=== PATIENT | female | born 1930 | race Caucasian/White ===

== ENCOUNTER 2017-05-26 23:56 | Inpatient (IN) | payer OTHER, MEDICARE ==
--- NOTE | 2017-05-27 00:11 | PDOC ---
History of Present Illness - General Chief Complaint: Pain, Acute Stated Complaint: ABDOMINAL PAIN AFTER EATING LOBSTER Time Seen by Provider: 05/27/17 00:04 - History of Present Illness Initial Comments: 05/27/17 00:49 This 87-year-old woman with a history of hypertension, GERD, diverticular disease, colon carcinoma (2006) presents with epigastric pain and mild nausea for the last 3-4 hours. Patient states that she ate lobster (with melted butter ) at approximately 6 PM. At approximately 9 PM, she had onset of epigastric pain which has been steady. This pain is not anything like her diverticular or GERD pain. Patient had a normal bowel movement a few hours prior to presentation. She denies fever/chills. No history of chest pain, shortness of breath, cough. She has not had any recent acute illness. Patient has a history of appendectomy and hysterectomy. Past History - Past Medical History Allergies/Adverse Reactions: Allergies Allergy/AdvReac Type Severity Reaction Status Date / Time No Known Drug Allergies Allergy Verified 08/23/16 16:54 Anemia: No Asthma: No Cancer: Yes (COLON 2007,HAD RESECTION AND CHEMO) Cardiac Disorders: No CVA: No COPD: No CHF: No Dementia: No Diabetes: No GI Disorders: Yes (GERD COLON CANCER) Disorders: No HTN: Yes Hypercholesterolemia: No Liver Disease: No Seizures: No Thyroid Disease: No - Surgical History Abdominal Surgery: Yes (COLON RESECTION 2003) Appendectomy: Yes () Cardiac Surgery: No Cholecystectomy: No Lung Surgery: No Neurologic Surgery: No Orthopedic Surgery: No - Psycho/Social/Smoking Cessation Hx Anxiety: No Suicidal Ideation: No Smoking History: Never smoked Have you smoked in the past 12 months: No Hx Alcohol Use: No Drug/Substance Use Hx: No Substance Use Type: None Hx Substance Use Treatment: No Review of Systems - Review of Systems Able to Perform ROS?: Yes Comments:: 12 point review of systems is negative except for what is noted in the history of present illness *Physical Exam - Physical Exam Comments: GENERAL: Elderly female, alert and oriented 3, in moderate distress secondary to epigastric pain HEAD: Normal with no signs of trauma. EYES: PERRLA, EOMI, sclera anicteric, conjunctiva clear. ENT: Ears normal, nares patent, oropharynx clear without exudates. Moist mucous membranes. NECK: Normal range of motion, supple without lymphadenopathy, JVD, or masses. LUNGS: Breath sounds equal, clear to auscultation bilaterally. No wheezes, and no crackles. HEART:Regular rate and rhythm, normal S1 and S2 without murmur, rub or gallop. ABDOMEN:.normal bowel sounds no distention; mild epigastric tenderness without peritoneal signs Positive Graham sign, no masses or organomegaly present. EXTREMITIES: Normal range of motion, no edema. No clubbing or cyanosis. No erythema, or tenderness. NEUROLOGICAL: Cranial nerves II through XII grossly intact. Normal speech. No focal neurologic deficit MUSCULOSKELETAL: Back non-tender to palpation, no CVA tenderness SKIN: Warm, Dry, normal turgor, no rashes or lesions noted. 12-lead electrocardiogram performed and interpreted by me. This shows normal sinus rhythm at 91 bpm. P[place], intervals and wave forms are all normal. Compared to 12-lead EKG performed on 01/22/16, there is no significant change. ED Treatment Course - LABORATORY CBC & Chemistry Diagram: 05/27/17 00:30 05/27/17 00:35 Progress Note - Progress Note Progress Note: Gallbladder ultrasound interpreted by Imaging manager of application development: Gallbladder is distended containing multiple stones. There is mild wall thickening up to 4.4 millimeters with trace pericholecystic fluid. Findings are highly suspicious for acute cholecystitis. CBD not dilated, measuring 7 mm in diameter. No other significant findings. Medical Decision Making - Medical Decision Making 05/27/17 02:00 87-year-old woman presents with several hours of epigastric pain and nausea (no vomiting); onset of pain was a few hours after high-fat meal. No previous history of gallbladder pathology. Ultrasound consistent with multiple gallstones and acute cholecystitis with mild wall thickening and trace pericholecystic fluid. No elevation of white blood cell count on CBC; chemistry profile shows moderate prerenal azotemia with BUN of 25 and creatinine of 0.9. LFTs/lipase normal Patient has had some improvement in her abdominal pain (from "8/10" to "4/10") after Toradol 30 mg IV, her nausea has worsened (Zofran 4 mg IV ordered) Zosyn 3.3 grams IV ordered 05/27/17 02:21 Patient given 0.5mg Dilaudid IV for recurrent pain 05/27/17 02:44 Additional 4 mg of Zofran IV given for persistent nausea. Patient's PMD is Dr. Jeronimo Case discussed with , [facility] hospitalist service. Patient will be admitted with diagnosis of acute cholecystitis to hospitalist service. 05/27/17 03:05 Portable chest x-ray performed: No evidence of acute disease. Patient transported to admission bed in stable condition , comfortable and without new complaints. *DC/Admit/Observation/Transfer Diagnosis at time of Disposition: Acute calculous cholecystitis - Discharge Dispostion Condition at time of disposition: Stable Admit: Yes - Referrals
[2017-05-27] MEDS ORDERED: KETOROLAC TROMETHAMINE 30 MG/1 ML VIAL IVPUSH ONE (00:24)
[2017-05-27] MEDS ORDERED: KETOROLAC TROMETHAMINE 30 MG/1 ML VIAL ONE (00:30)
[2017-05-27 00:39] VITALS: BMI 22.8
[2017-05-27] MEDS ORDERED: HYOSCYAMINE SULFATE 0.125 MG *ODT PO ONE (00:39)
[2017-05-27] MEDS ORDERED: MAG HYDROX/AL HYDROX/SIMETH 355 ML ORAL.SUSP PO ONE (00:39)
[2017-05-27] MEDS ORDERED: HYOSCYAMINE SULFATE 0.125 MG *ODT ONE (00:40)
[2017-05-27] MEDS ORDERED: MAG HYDROX/AL HYDROX/SIMETH 30 ML UNIT-DOSE CUP ONE (00:43)
[2017-05-27 01:09] LABS: BASOPHIL 1.2 % (0-2.0); EOSINOPHIL 2.1 % (0-4.5); MCH 36.8 pg (25.7-33.7); MCHC 34.5 g/dl (32.0-36.0); MEAN CELL VOLUME 106.7 fl (80-96); MEAN PLT VOLUME 10.2 fl (7.5-11.1); NEUTROPHILS 42.2 % (42.8-82.8); RDW 14.9 % (11.6-15.6); WHITE BLOOD COUNT 6.2 K/mm3 (4.0-10.0)
[2017-05-27 01:34] LABS: TROPONIN I < 0.02 ng/ml (0.00-0.05)
[2017-05-27 01:54] LABS: ALBUMIN 4.4 g/dl (3.4-5.0); ALK PHOS 80 U/L (45-117); ANION GAP 10 (8-16); BILIRUBIN,TOTAL 0.6 mg/dL (0.2-1.0); CALCIUM 9.4 mg/dL (8.5-10.1); CO2 26 mmol/L (21-32); CREATININE 0.9 mg/dL (0.55-1.02); GLUCOSE,RANDOM 125 mg/dL (74-106); SGOT/AST 18 U/L (15-37); SGPT/ALT 22 U/L (12-78); TOT PROT 7.7 g/dl (6.4-8.2)
[2017-05-27] MEDS ORDERED: PIPERACILLIN/TAZOB 3.375 GM 3.375 GM in DEXTROSE 5%-WATER - 50 ML IVPB ONE (01:57)
[2017-05-27] MEDS ORDERED: PIPERACILLIN/TAZOBACTAM 3.375 GM VIAL IVPB ONE (01:58)
[2017-05-27 01:59] LABS: ANISOCYTOSIS 2+; PLATELET COMMENT2 NO CLUMPING NOTED; PLATELET COUNT 144 K/MM3 (134-434)
[2017-05-27] MEDS ORDERED: ONDANSETRON 4 MG/2 ML VIAL ONE ×2 (02:00→02:39)
[2017-05-27] MEDS ORDERED: ONDANSETRON 4 MG/2 ML VIAL IVPUSH ONE ×2 (02:00→02:42)
[2017-05-27] MEDS ORDERED: HYDROmorphone HCL CARPU-JECT 1 MG/1 ML DISP.SYRIN ONE (02:11)
[2017-05-27] MEDS ORDERED: HYDROmorphone HCL CARPU-JECT 1 MG/1 ML DISP.SYRIN IVPUSH ONE (02:19)
[2017-05-27] MEDS ORDERED: morphine CARPU-JECT 2 MG/1 ML DISP.SYRIN IVPUSH PRN (02:28)
--- NOTE | 2017-05-27 08:12 | HP ---
CHIEF COMPLAINT: right upper quadrant abdominal pain PCP: Dr Jeronimo HISTORY OF PRESENT ILLNESS: Patient is a 87 y/o female with a past medical history of hypertension, diverticulitis, GERD, and colon carcinoma, s/p colon resection, chemo 2006. Patient reports she ate a lobster dinner last evening and at 2100 yesterday evening developed sharp epigastric pain with nausea. As a result, she sought evaluation in the emergency department. ER course was notable for: (1) abdominal ultrasound: multiple gallstones, finding suspicous for acute choleystitis without biliary duct dilation (2) chest xray no infilitrates or effusions noted (3) wbc 6.2 Recent Travel: none PAST MEDICAL HISTORY: see hpi PAST SURGICAL HISTORY: see hpi Social History: retired, resides at home Smoking: none Alcohol: drinks wine daily Drugs: Family History: non contributory Allergies No Known Drug Allergies Allergy (Verified 08/23/16 16:54) HOME MEDICATIONS: REVIEW OF SYSTEMS CONSTITUTIONAL: Absent: fever, chills, diaphoresis, generalized weakness, malaise, loss of appetite, weight change HEENT: Absent: rhinorrhea, nasal congestion, throat pain, throat swelling, difficulty swallowing, mouth swelling, ear pain, eye pain, visual changes CARDIOVASCULAR: Absent: chest pain, syncope, palpitations, irregular heart rate, lightheadedness , peripheral edema RESPIRATORY: Absent: cough, shortness of breath, dyspnea with exertion, orthopnea, wheezing, stridor, hemoptysis GASTROINTESTINAL: Present: abdominal pain, nausea, Absent: abdominal distension, vomiting, diarrhea, constipation, melena, hematochezia GENITOURINARY: Absent: dysuria, frequency, urgency, hesitancy, hematuria, flank pain, genital pain MUSCULOSKELETAL: Absent: myalgia, arthralgia, joint swelling, back pain, neck pain SKIN: Absent: rash, itching, pallor HEMATOLOGIC/IMMUNOLOGIC: Absent: easy bleeding, easy bruising, lymphadenopathy, frequent infections ENDOCRINE: Absent: unexplained weight gain, unexplained weight loss, heat intolerance, cold intolerance NEUROLOGIC: Absent: headache, focal weakness or paresthesias, dizziness, unsteady gait, seizure, mental status changes, bladder or bowel incontinence PSYCHIATRIC: Absent: anxiety, depression, suicidal or homicidal ideation, hallucinations. PHYSICAL EXAMINATION Vital Signs - 24 hr 05/27/17 05/27/17 02:57 06:25 Temperature 97.9 F Pulse Rate 80 Pulse Rate [ 84 Left] Respiratory 16 18 Rate Blood Pressure 112/71 Blood Pressure 135/76 [Left] O2 Sat by Pulse 98 Oximetry (%) GENERAL: thin, Awake, alert, and fully oriented, anxious. HEAD: Normal with no signs of trauma. EYES: Pupils equal, round and reactive to light, extraocular movements intact, sclera anicteric, conjunctiva clear. No lid lag. EARS, NOSE, THROAT: Ears normal, nares patent, oropharynx clear without exudates. Moist mucous membranes. NECK: Normal range of motion, supple without lymphadenopathy, JVD, or masses. LUNGS: Breath sounds equal, clear to auscultation bilaterally. No wheezes, and no crackles. No accessory muscle use. HEART: Regular rate and rhythm, normal S1 and S2 without murmur, rub or gallop. ABDOMEN: Soft, +murphys sign, well healed surgical site, not distended, normoactive bowel sounds, no guarding, no masses. No hepatomegaly or splenomegaly. MUSCULOSKELETAL: Normal range of motion at all joints. No bony deformities or tenderness. No CVA tenderness. UPPER EXTREMITIES: 2+ pulses, warm, well-perfused. No cyanosis. No clubbing. No peripheral edema. LOWER EXTREMITIES: 2+ pulses, warm, well-perfused. No calf tenderness. No peripheral edema. NEUROLOGICAL: Cranial nerves II-XII intact. Normal speech. Normal gait. PSYCHIATRIC: Cooperative. Good eye contact. Appropriate mood and affect. SKIN: Warm, dry, normal turgor, no rashes or lesions noted, normal capillary refill. Laboratory Results - last 24 hr 05/27/17 02:42 Lactic Acid 1.0 CBC WBC 6.2 K/mm3 (4.0-10.0) 05/27/17 00:30 RBC 3.90 M/mm3 (3.60-5.2) D 05/27/17 00:30 Hgb 14.4 GM/dL (10.7-15.3) D 05/27/17 00:30 Hct 41.6 % (32.4-45.2) D 05/27/17 00:30 MCV 106.7 fl (80-96) H 05/27/17 00:30 MCH 36.8 pg (25.7-33.7) H 05/27/17 00:30 MCHC 34.5 g/dl (32.0-36.0) 05/27/17 00:30 RDW 14.9 % (11.6-15.6) 05/27/17 00:30 Plt Count 144 K/MM3 (134-434) 05/27/17 00:30 MPV 10.2 fl (7.5-11.1) 05/27/17 00:30 Neutrophils % 42.2 % (42.8-82.8) L 05/27/17 00:30 Lymphocytes % 45.6 % (8-40) H 05/27/17 00:30 Monocytes % 8.9 % (3.8-10.2) 05/27/17:30 Eosinophils % 2.1 % (0-4.5) 05/27/17:30 Basophils % 1.2 % (0-2.0) 05/27/17 00:30 Platelet Comment Few giant plts 05/27/17:30 Platelet Comment No clumping noted 05/27/17 00:30 Anisocytosis 2+ 05/27/17 00:30 Macrocytosis 2+ 05/27/17 00:30 CMP Sodium 143 mmol/L (136-145) 05/27/17 00:35 Potassium 3.8 mmol/L (3.5-5.1) 05/27/17 00:35 Chloride 107 mmol/L (98-107) 05/27/17 00:35 Carbon Dioxide 26 mmol/L (21-32) D 05/27/17 00:35 Anion Gap 10 (8-16) 05/27/17 00:35 BUN 25 mg/dL (7-18) H D 05/27/17 00:35 Creatinine 0.9 mg/dL (0.55-1.02) 05/27/17 00:35 Creat Clearance w eGFR 59.51 (>60) 05/27/17 00:35 Random Glucose 125 mg/dL (74-106) H D 05/27/17 00:35 Lactic Acid 1.0 mmol/L (0.4-2.0) 05/27/17 02:42 Calcium 9.4 mg/dL (8.5-10.1) D 05/27/17 00:35 Total Bilirubin 0.6 mg/dL (0.2-1.0) 05/27/17 00:35 AST 18 U/L (15-37) 05/27/17 00:35 ALT 22 U/L (12-78) 05/27/17 00:35 Alkaline Phosphatase 80 U/L (45-117) 05/27/17 00:35 Creatine Kinase 54 IU/L (26-192) 05/27/17 00:30 Troponin I < 0.02 ng/ml (0.00-0.05) 05/27/17 00:30 Total Protein 7.7 g/dl (6.4-8.2) 05/27/17 00:35 Albumin 4.4 g/dl (3.4-5.0) 05/27/17 00:35 Lipase 84 U/L (73-393) 05/27/17 00:30 Laboratory Tests 05/27/17 07:00 INR 0.94 L ASSESSMENT/PLAN: f/e/n - npo-->ivf - replete electrolytes prn ppx - oob - scd/delano - pepcid - hold ac pending OR patient is medically optimized for surgery Dispo: pt requires inpatient admission Problem List - Problem (1) Acute calculous cholecystitis Assessment/Plan: - ultrasound reviewed, no transanmintis noted, keep pt NPO, IVF d5ns @75ml/hr - continue zosyn, appreciate ID input for antibiotic clearance - monitor wbc and fever curve - pt is requesting Dr Mathis, from prior surgery (colon resection), office called, Dr Mathis unavailable, case discussed with Dr Santana will evaluate patient today. Code(s): K80.00 - CALCULUS OF GALLBLADDER W ACUTE CHOLECYST W/O OBSTRUCTION (2) GERD (gastroesophageal reflux disease) Assessment/Plan: - Pepcid IV Code(s): K21.9 - GASTRO-ESOPHAGEAL REFLUX DISEASE WITHOUT ESOPHAGITIS (3) HTN (hypertension) Assessment/Plan: - b/p well controlled continue enalapril and amolodipine home dosages - ekg nsr with nonspecific st abnormality unchanged from prior ekg (08/23/16) Code(s): I10 - ESSENTIAL (PRIMARY) HYPERTENSION (4) Alcohol abuse, daily use Assessment/Plan: - pt reports she drinks wine daily "one glass or 2" - observe for signs of alcohol withdrawl - ativan 0.5mg prn ordered Code(s): F10.10 - ALCOHOL ABUSE, UNCOMPLICATED Visit type - Emergency Visit Emergency Visit: Yes ED Registration Date: 05/27/17 Care time: The patient presented to the Emergency Department on the above date and was hospitalized for further evaluation of their emergent condition. - New Patient This patient is new to me today: Yes Date on this admission: 05/27/17 - Critical Care Critical Care patient: No
[2017-05-27 08:18] LABS: ACTIVATED PTT 29.4 SECONDS (24.0-38.9)
[2017-05-27 08:22] LABS: INR 0.94 (0.82-1.09); PROTHROMBIN TIME (PATIENT) 10.5 SEC (10.2-13.0)
--- NOTE | 2017-05-27 08:58 | PN ---
Progress Note (short form) - Note Progress Note: ID Consult dictated Acute cholecystitis Possible biliary sepsis Obtain cultures Surgical evaluation Empiric zosn
[2017-05-27] MEDS ORDERED: DEXTROSE 5%-NORMAL SALINE 1,000 ML IV SCH ×2 (10:00→11:31)
[2017-05-27] MEDS: ENALAPRIL MALEATE 10 MG TABLET (FP) PO SCH (10:30)
[2017-05-27] MEDS: amLODIPine BESYLATE 10 MG TABLET (FP) PO SCH (10:31)
[2017-05-27] MEDS: PIPERACILLIN/TAZOB 3.375 GM 50 ML IVPB SCH ×2 (10:31→17:05)
[2017-05-27] MEDS: FAMOTIDINE 20 MG/50 ML IVPB 50 ML IVPB SCH ×2 (10:31→21:15)
[2017-05-27] MEDS ORDERED: ACETAMINOPHEN 325 MG TABLET (FP) PO PRN (11:11)
[2017-05-27] MEDS ORDERED: LORAZEPAM CARPU-JECT 2 MG/ML DISP.SYRIN IVPUSH PRN (11:12)
[2017-05-27 11:31] LABS: MAGNESIUM 2.2 mg/dL (1.8-2.4); PHOSPHOROUS 3.8 mg/dl (2.5-4.6)
[2017-05-27 11:35] LABS: URINE APPEARANCE Clear; URINE BILIRUBIN Negative (NEGATIVE); URINE BLOOD Negative (NEGATIVE); URINE GLUCOSE (UA) Negative (NEGATIVE); URINE KETONE Negative (NEGATIVE); URINE NITRITE Negative (NEGATIVE); URINE PROTEIN Negative (NEGATIVE); URINE UROBILINOGEN 0.2 (0.2-1.0)
[2017-05-27 11:36] LABS: URINE COLOR YELLOW; URINE LEUK ESTERASE TRACE (NEGATIVE)
[2017-05-27] MEDS ORDERED: LORazepam 2 MG/ML SDV VIAL IVPUSH PRN (11:41)
[2017-05-27 11:48] LABS: URINE RBC 0-2 /hpf (0-3)
[2017-05-27] MEDS: LACTOBACILLUS ACIDOPHILUS 1 EACH TAB (FP) PO SCH (12:15)
--- NOTE | 2017-05-27 14:05 | CONS ---
DATE OF CONSULTATION: HISTORY: The patient is an 87-year-old female with history of previous abdominal surgery evaluated for acute cholecystitis. She was admitted to the hospital on May 27, 2017 after developing postprandial abdominal pain. She reports that after consuming a meal with lobster, she developed sharp epigastric pain, nausea, and vomiting approximately 3-4 hours later. She presented to the emergency room where she was found to have acute right upper quadrant abdominal tenderness, positive Graham sign. A sonogram showed a distended gallbladder with stones and pericholecystic fluid. She was empirically treated with Zosyn. At the present time, she is awake and alert. She has no complaints. She denies any abdominal pain. No recurrent nausea or vomiting. She has had a normal bowel movement. PAST MEDICAL HISTORY: Positive for colon cancer status post colon surgery in 2006, diverticular disease, gastroesophageal reflux, hypertension. PAST SURGICAL HISTORY: Status post colonic surgery, appendectomy, hysterectomy. ALLERGIES: No known allergies. MEDICATIONS: Include Vasotec and Norvasc. SOCIAL HISTORY: Lives at home. Nonsmoker. No documented alcohol or illicit drug history. SYSTEMS REVIEW: Neurologic: No loss of consciousness, seizure activity, focal weakness. Cardiac: Negative chest pain or palpitations. Respiratory: Negative cough or sputum production. Gastrointestinal: As per HPI. Genitourinary: Negative for urinary tract infection. LABORATORY DATA: White count 6.2, hematocrit 41.6, platelet count 144, BUN 25, creatinine 0.9. Liver enzymes normal. Urinalysis and culture pending. Chest x-ray negative for acute infiltrate. Sonogram as described. PHYSICAL EXAMINATION: General: She is awake and alert. She is not acutely toxic appearing. Vital Signs: Temperature 97.9, blood pressure 112/71, pulse 80 and regular, respirations 20 per minute. HEENT: Sclerae anicteric. Heart: Sounds S1, S2. Lungs: Clear. No rales, rhonchi, or wheezing. Abdomen: Positive bowel sounds. Abdomen is soft. There is right upper quadrant tenderness to palpation. Positive Graham sign. Extremities: Have 1+ edema. IMPRESSION: 1. Acute cholecystitis. 2. Possible sepsis secondary to biliary tract. 3. Status post abdominal surgery for colon cancer. Obtain cultures. Empiric antibiotic coverage. Biliary tract pathogens with Zosyn 3.375 g IV piggyback every 8 hours. Surgical evaluation. We will follow. Thank you for the kind referral. CHITO WHATLEY M.D. CHRISTIAN/[id number]
--- NOTE | 2017-05-27 14:56 | EKG ---
Test Reason : Blood Pressure : / mmHG Vent. Rate : 091 BPM Atrial Rate : 091 BPM P-R Int : 122 ms QRS Dur : 076 ms QT Int : 356 ms P-R-T Axes : 033 013 046 degrees QTc Int : 437 ms SINUS RHYTHM NO PREVIOUS ECGS AVAILABLE Confirmed by JING MOORE MD ([id number]) on 05/27/2017 2:56:07 PM Referred By: MD CALDERON Confirmed By:JING MOORE MD
--- NOTE | 2017-05-27 17:21 | PN ---
Progress Note (short form) - Note Progress Note: surgery pt seen and examined. full consult dictated. 87f with distant colectomy for cancer, presents with resolved 6 hours of ruq pain. u/s shows gallstones with fluid and mild thickening. cbd 7mm. lfts and wbc wnl. Pt admitted for acute cholecystitis and started on zosyn,. on exam abd is soft, nt. Plan- acute cholecystitis responding well to abx vs biliary colic. would give trial of clear liquids and advance to low fat diet if tolerates. can d/c home tomorrow on po augmenting 875 bid for 5 days if remains well with plans for elective cholecystectomy. Otherwise will make plans for surgery. Pt wants to go home and avoid surgery now.
[2017-05-28] MEDS: PIPERACILLIN/TAZOB 3.375 GM 50 ML IVPB SCH ×2 (01:28→09:04)
[2017-05-28 06:08] VITALS: BP 105/52; PULSE 74; TEMP 98.2
--- NOTE | 2017-05-28 08:50 | DS ---
Physical Exam: SUBJECTIVE: Patient seen and examined OBJECTIVE: Vital Signs Period Temp Pulse Resp BP Sys/Duran Pulse Ox Last 24 Hr 97.8 F-98.3 F 63-82 17-18 103-128/52-84 97-98 PHYSICAL EXAM GENERAL: The patient is awake, alert, and fully oriented, in no acute distress. HEAD: Normal with no signs of trauma. EYES: PERRL, extraocular movements intact, sclera anicteric, conjunctiva clear. ENT: Ears normal, nares patent, oropharynx clear without exudates, moist mucous membranes. NECK: Trachea midline, full range of motion, supple. LUNGS: Breath sounds equal, clear to auscultation bilaterally, no wheezes, no crackles, no accessory muscle use. HEART: Regular rate and rhythm, S1, S2 without murmur, rub or gallop. ABDOMEN: Soft, nontender, nondistended, normoactive bowel sounds, no guarding, no rebound, no hepatosplenomegaly, no masses. EXTREMITIES: 2+ pulses, warm, well-perfused, no edema. NEUROLOGICAL: Cranial nerves II through XII grossly intact. Normal speech, gait not observed. PSYCH: Normal mood, normal affect. SKIN: Warm, dry, normal turgor, no rashes or lesions noted. LABS Laboratory Results - last 24 hr 05/27/17 05/27/17 11:00 15:00 Urine Color Yellow Urine Appearance Clear Urine pH 6.0 Ur Specific [place] 1.015 Urine Protein Negative Urine Glucose (UA) Negative Urine Ketones Negative Urine Blood Negative Urine Nitrite Negative Urine Bilirubin Negative Urine Urobilinogen 0.2 Ur Leukocyte Esterase Trace H Urine RBC 0-2 Urine WBC 5-8 Ur Epithelial Cells 3-5 Blood Type O NEGATIVE Antibody Screen Negative HOSPITAL COURSE: Date of Admission:05/27/17 Date of Discharge: 05/28/17 Minutes to complete discharge: 45 Discharge Summary Reason For Visit: ABDOMINAL PAIN AFTER EATING LOBSTER Current Active Problems Acute calculous cholecystitis (Acute) Alcohol abuse, daily use (Acute) Condition: Stable - Instructions Referrals: Fer Jeronimo MD [Primary Care Provider] - Problem List - Problems (1) Acute calculous cholecystitis Code(s): K80.00 - CALCULUS OF GALLBLADDER W ACUTE CHOLECYST W/O OBSTRUCTION (2) GERD (gastroesophageal reflux disease) Code(s): K21.9 - GASTRO-ESOPHAGEAL REFLUX DISEASE WITHOUT ESOPHAGITIS (3) HTN (hypertension) Code(s): I10 - ESSENTIAL (PRIMARY) HYPERTENSION (4) Alcohol abuse, daily use Code(s): F10.10 - ALCOHOL ABUSE, UNCOMPLICATED
[2017-05-28] MEDS: LACTOBACILLUS ACIDOPHILUS 1 EACH TAB (FP) PO SCH (09:03)
[2017-05-28] MEDS: amLODIPine BESYLATE 10 MG TABLET (FP) PO SCH (09:04)
[2017-05-28] MEDS: FAMOTIDINE 20 MG/50 ML IVPB 50 ML IVPB SCH (09:04)
[2017-05-28] MEDS: ENALAPRIL MALEATE 10 MG TABLET (FP) PO SCH (09:04)
--- NOTE | 2017-05-28 09:45 | CONS ---
EMERGENCY ROOM CONSULTATION DATE OF CONSULTATION: 05/27/2017 REASON FOR CONSULTATION: Acute cholecystitis and cholelithiasis. This is an emergency room consultation at the request of the emergency room physician. The patient was subsequently to the floor and seen and evaluated on the floor. BRIEF HISTORY: This is an 87-year-old female with a history of distant colon cancer with a colectomy through an open incision, presents with right upper quadrant pain after eating a lobster dinner. She also reports mild nausea. This started around 9:30 at night, and the symptoms stopped at [facility] around 3:30 in the morning, at approximately 6 hours after onset. The patient had an ultrasound of her gallbladder which confirmed gallstones with some fluid around the gallbladder and mild thickening, and she was admitted for acute cholecystitis. She was started on Zosyn antibiotic by the infectious disease service. Since 3:30 in the morning, she has been asymptomatic, and she currently wishes to have food and go home. She denies diarrhea, denies blood in her stool. PAST MEDICAL HISTORY: Significant for hypertension, diverticulitis, colon cancer, and gastroesophageal reflux disease. PAST SURGICAL HISTORY: Includes the open colectomy for cancer and appendectomy and a hysterectomy. SOCIAL HISTORY: Positive for occasional alcohol consumption. Negative for tobacco. ALLERGIES: She has no known drug allergies. REVIEW OF SYSTEMS: General: Denies fatigue or malaise. Cardiac: Denies chest pain or palpitations. Respiratory: Denies shortness of breath or wheeze. Gastrointestinal: Denies currently nausea or vomiting. Denies diarrhea. Denies blood in her stool. Denies recent weight loss. Genitourinary: Denies dysuria. Musculoskeletal: Denies joint pain or joint swelling. Psychiatric: Denies anxiety, depression, or hearing voices. PHYSICAL EXAMINATION: General: This is a thin, 87-year-old female in no distress. Vital Signs: She is afebrile. HEENT: Her head is normocephalic. Her sclerae are anicteric. Neck: Supple. Chest: Clear. Abdomen: Soft. It is nontender. There is a midline scar below her umbilicus. She has no obvious hernias. Extremities: Trace edema. LABORATORY DATA: On review of her laboratory, her white blood cell count is normal at 6.2 without a shift. Her chemistries are unremarkable with normal liver function tests. IMAGING: As in HPI. ASSESSMENT: This is an 87-year-old female with 6 hours of right upper quadrant pain that has resolved, with ultrasound consistent with cholelithiasis, thickened gallbladder wall, and edema. This is either acute cholecystitis responding very well to antibiotics or this is an episode of biliary colic. In either event, the patient currently is asymptomatic and feels well and does not wish to stay for surgery. At this point, we will give a trial of clear-liquid diet and then advance to low-fat diet. If she tolerates this, she can be discharged home on 1 week of Augmentin 875 b.i.d. She will then consider elective cholecystectomy to prevent future recurrence. If the patient is unable to tolerate clear liquids or a low-fat diet, then she should stay for plans for cholecystectomy. Currently, she is nontoxic and feels well. I discussed the plan with Marium Matias NP. DO TENZIN KOCH/[id number]
== END 2017-05-28 11:08 | disposition home or self-care (01) | DRG 446 ==
LOC: FER 23:56 → FM/S 05-27 02:31
PROVIDERS: ADMIT Internal Medicine; ATTEND Nurse Practitioner Family
DX: K80.00 Calculus of gallbladder with acute cholecystitis without obstruction (principal); I10 Essential (primary) hypertension; K21.9 Gastro-esophageal reflux disease without esophagitis; F10.10 Alcohol abuse, uncomplicated; Z85.038 Personal history of other malignant neoplasm of large intestine
CPT/HCPCS: 36415; 71010-TC; 76705-TC; 80053; 81003; 81015; 82550; 83605; 83690; 83735; 84100; 84484; 85025; 85610; 85730; 86850; 86900; 86901; 87040; 87086; 93005; 94010; 99282-25

== ENCOUNTER 2017-09-16 03:09 | Inpatient (IN) | payer OTHER, MEDICARE ==
--- NOTE | 2017-09-16 03:11 | PDOC ---
History of Present Illness - General Chief Complaint: Pain, Acute Stated Complaint: UPPER ABDOMINAL PAIN Time Seen by Provider: 09/16/17 03:10 - History of Present Illness Initial Comments: this 87-year-old woman with a history of colon cancer, GERD, cholelithiasis presents with a four-hour history of epigastric pain and nausea. She had dinner of crabcakes/fettuccine with goldberg/wine along with ice cream for dessert approximately 4 hours prior to onset of pain. She denies vomiting/fever/ diarrhea. Patient has history of biliary colic/acute cholecystitis for which she was admitted overnight here 4 months ago after eating lobster. Since then, she has had brief epigastric/right upper quadrant discomfort that resolves quickly and is associated with dietary indiscretion.After episode of acute cholecystitis in May of this year, the patient was seen in follow-up by a general surgeon who reportedly advised against cholecystectomy. There has been no fever/chest pain/shortness of breath. Past History - Past Medical History Allergies/Adverse Reactions: Allergies Allergy/AdvReac Type Severity Reaction Status Date / Time No Known Drug Allergies Allergy Verified 09/16/17 03:11 Anemia: No Asthma: No Cancer: Yes (COLON 2007,HAD RESECTION AND CHEMO) Cardiac Disorders: No CVA: No COPD: No CHF: No Dementia: No Diabetes: No GI Disorders: Yes (GERD COLON CANCER) Disorders: No HTN: Yes Hypercholesterolemia: No Liver Disease: No Seizures: No Thyroid Disease: No - Surgical History Abdominal Surgery: Yes (COLON RESECTION 2003) Appendectomy: Yes () Cardiac Surgery: No Cholecystectomy: No Lung Surgery: No Neurologic Surgery: No Orthopedic Surgery: No - Suicide/Smoking/Psychosocial Hx Smoking History: Never smoked Have you smoked in the past 12 months: No Hx Alcohol Use: No Drug/Substance Use Hx: No Substance Use Type: None Hx Substance Use Treatment: No Review of Systems - Review of Systems Able to Perform ROS?: Yes Comments:: 12 point review of systems is negative except for what is noted in the history of present illness *Physical Exam - Physical Exam Comments: GENERAL: Elderly female, alert and oriented 3, in moderate distress secondary to epigastric pain/nausea HEAD: Normal with no signs of trauma. EYES: PERRLA, EOMI, sclera anicteric, conjunctiva clear. ENT: Ears normal, nares patent, oropharynx clear without exudates. Dry mucous membranes. NECK: Normal range of motion, supple without lymphadenopathy, JVD, or masses. LUNGS: Breath sounds equal, clear to auscultation bilaterally. No wheezes, and no crackles. HEART:Regular rate and rhythm, normal S1 and S2 without murmur, rub or gallop. ABDOMEN:.normal bowel sounds moderate epigastric tenderness/No guarding or rebound.No masses No distention. No clear Graham sign EXTREMITIES: Normal range of motion, no edema. No clubbing or cyanosis. No erythema, or tenderness. NEUROLOGICAL: Cranial nerves II through XII grossly intact. Normal speech. No focal neurological deficits. MUSCULOSKELETAL: Back non-tender to palpation, no CVA tenderness SKIN: Warm, Dry, normal turgor, no rashes or lesions noted. 12-lead electrocardiogram reveals normal sinus rhythm at 76 bpm; it is unchanged from EKG tracing dated 05/27/70 ED Treatment Course - LABORATORY CBC & Chemistry Diagram: 09/16/17 03:30 09/16/17 03:30 Progress Note - Progress Note Progress Note: 87-year-old woman with history of cholelithiasis presents with epigastric pain a few hours after eating a high-fat meal. She has moderate epigastric tenderness without guarding or rebound. 12-lead EKG shows no evidence of acute ST or T-wave abnormalities and is unchanged from tracing of 05/17/17 -CBC/lipase/chemistry profile/cardiac enzymes drawn -0.5 mg of Dilaudid IV will be given for analgesia (patient had worsening of her nausea went Toradol was given for her biliary colic in May) -4 mg Zosyn IV for nausea -250 mL bolus of normal saline IV Medical Decision Making - Medical Decision Making 09/16/17 04:41 Patient continues to be uncomfortable with persistent epigastric pain and nausea. Additional Dilaudid 0.5 mg IV/Pepcid 20 mg IV and Zofran 4 mg IV ordered. Laboratory evaluation pending 09/16/17 05:38 Patient continues to have pain after additional Dilaudid (1.5 mg IV total given ) and Pepcid 20 mg IV/Zofran 4mg IV Laboratory evaluation shows normal white blood cell count as well as normal LFTs. Prerenal azotemia (mild) present with BUN 22 and creatinine 0.9 Although acute gastritis or biliary colic still possible, will perform abdominal /pelvic CT to rule out acute vascular pathology. 09/16/17 06:53 Abdominal/pelvic CT performed and preliminary reading pending. Patient continues to feel epigastric pain, with little improvement since presentation "05/13". No new radiation of the pain. Patient has mild nausea but has not vomited since being in the emergency room. Protonix 40 mg IV ordered 09/16/17 07:07 Preliminary reading of abdominal/pelvic CT from Imaging electronic security technician reveals no significant abnormality with cholelithiasis present in the absence of acute cholecystitis. No evidence of small bowel obstruction, vascular abnormality, pancreatitis, abscess or other acute intra-abdominal/intrapelvic process. Patient's PMD is Dr. Jeronimo. Since she continues to be in significant abdominal pain despite multiple doses of IV Dilaudid/Zofran/Pepcid, Admission is warranted for further workup/therapy. [facility] hospitalist service has been contacted. Case discussed with incoming physician at change of shift *DC/Admit/Observation/Transfer Diagnosis at time of Disposition: Abdominal pain Qualifiers: Abdominal location: epigastric Qualified Code(s): R10.13 - Epigastric pain - Discharge Dispostion Condition at time of disposition: Good - Referrals - Patient Instructions - Post Discharge Activity
[2017-09-16] MEDS ORDERED: SODIUM CHLORIDE 250 ML IV STA ×2 (03:24→05:38)
[2017-09-16] MEDS ORDERED: ONDANSETRON 4 MG/2 ML VIAL IVPUSH ONE ×2 (03:24→04:40)
[2017-09-16] MEDS ORDERED: HYDROmorphone HCL CARPU-JECT 1 MG/1 ML DISP.SYRIN IVPUSH ONE ×5 (03:26→13:37)
[2017-09-16] MEDS ORDERED: ONDANSETRON 4 MG/2 ML VIAL ONE ×2 (03:28→04:45)
[2017-09-16] MEDS ORDERED: HYDROmorphone HCL CARPU-JECT 1 MG/1 ML DISP.SYRIN ONE ×4 (03:28→08:29)
[2017-09-16] MEDS ORDERED: FAMOTIDINE 20 MG/50 ML IVPB 20 MG/50 ML MG IVPB ONE ×2 (04:39)
[2017-09-16 04:51] LABS: BASOPHIL 0.7 % (0-2.0); EOSINOPHIL 0.4 % (0-4.5); MCH 37.8 pg (25.7-33.7); MCHC 35.1 g/dl (32.0-36.0); MEAN CELL VOLUME 107.5 fl (80-96); MEAN PLT VOLUME 10.5 fl (7.5-11.1); NEUTROPHILS 69.5 % (42.8-82.8); PLATELET COUNT 188 K/MM3 (134-434); RDW 14.5 % (11.6-15.6); WHITE BLOOD COUNT 9.8 K/mm3 (4.0-10.0)
[2017-09-16 05:10] LABS: ALBUMIN 4.4 g/dl (3.4-5.0); ANION GAP 11 (8-16); BILIRUBIN,TOTAL 0.6 mg/dL (0.2-1.0); CALCIUM 9.1 mg/dL (8.5-10.1); CO2 22 mmol/L (21-32); CREATININE 0.9 mg/dL (0.55-1.02); GLUCOSE,RANDOM 144 mg/dL (74-106); SGOT/AST 15 U/L (15-37); SGPT/ALT 20 U/L (12-78); TOT PROT 7.8 g/dl (6.4-8.2)
[2017-09-16 05:11] LABS: ALK PHOS 78 U/L (45-117); CPK 59 IU/L (26-192)
[2017-09-16] MEDS ORDERED: METOCLOPRAMIDE HCL INJECTION 10 MG/2 ML VIAL IVPB ONE (05:47)
[2017-09-16] MEDS ORDERED: PANTOPRAZOLE SODIUM 40 MG VIAL ONE (06:52)
[2017-09-16] MEDS ORDERED: PANTOPRAZOLE SODIUM 40 MG VIAL IVPB ONE (06:53)
--- NOTE | 2017-09-16 07:38 | PDOC ---
*Physical Exam - Vital Signs Last Vital Signs Temp Pulse Resp BP Pulse Ox 97.4 F L 72 18 131/71 100 09/16/17 03:14 09/16/17 06:00 09/16/17 06:00 09/16/17 06:00 09/16/17 06:00 ED Treatment Course - LABORATORY CBC & Chemistry Diagram: 09/16/17 03:30 09/16/17 03:30 - ADDITIONAL ORDERS Additional order review: Laboratory Results 09/16/17 09/16/17 03:30 03:20 Sodium 138 Potassium 3.7 Chloride 105 Carbon Dioxide 22 Anion Gap 11 BUN 22 H Creatinine 0.9 Creat Clearance w eGFR 59.51 Random Glucose 144 H Calcium 9.1 Total Bilirubin 0.6 AST 15 ALT 20 Alkaline Phosphatase 78 Creatine Kinase 59 Troponin I < 0.02 Total Protein 7.8 Albumin 4.4 Lipase 76 09/16/17 03:30 RBC 3.90 MCV 107.5 H MCHC 35.1 RDW 14.5 MPV 10.5 Neutrophils % 69.5 D Lymphocytes % 23.0 D Monocytes % 6.4 Eosinophils % 0.4 D Basophils % 0.7 - Medications Given in the ED: ED Medications Discontinued Medications Generic Name Dose Route Start Last Admin Trade Name Freq PRN Reason Stop Dose Admin Hydromorphone HCl 0.5 mg 09/16/17 03:26 09/16/17 03:37 Dilaudid Injection - IVPUSH 09/16/17 03:27 0.5 mg ONCE ONE Administration Hydromorphone HCl 0.5 mg 09/16/17 03:40 09/16/17 03:44 Dilaudid Injection - IVPUSH 09/16/17 03:41 0.5 mg ONCE ONE Administration Hydromorphone HCl 0.5 mg 09/16/17 04:39 09/16/17 04:45 Dilaudid Injection - IVPUSH 09/16/17 04:40 0.5 mg ONCE ONE Administration Sodium Chloride 250 mls @ 500 mls/hr 09/16/17 03:24 09/16/17 03:37 Normal Saline - IV 09/16/17 03:53 500 mls/hr ASDIR STA Administration Famotidine/Sodium Chloride 20 mg in 50 mls @ 100 mls/hr 09/16/17 04:39 04:44 Pepcid 20 Mg Premixed Ivpb - IVPB 09/16/17 05:08 100 mls/hr ONCE ONE Administration Sodium Chloride 250 mls @ 500 mls/hr 09/16/17 05:38 09/16/17 06:15 Normal Saline - IV 09/16/17 06:07 500 mls/hr ASDIR STA Administration Metoclopramide HCl 10 mg 09/16/17 05:47 09/16/17 06:15 Reglan Injection - IVPB 09/16/17 05:48 10 mg ONCE ONE Administration Ondansetron HCl 4 mg 09/16/17 03:24 09/16/17 03:37 Zofran Injection IVPUSH 09/16/17 03:25 4 mg ONCE ONE Administration Ondansetron HCl 4 mg 09/16/17 04:40 09/16/17 04:51 Zofran Injection IVPUSH 09/16/17 04:41 4 mg ONCE ONE Administration Pantoprazole Sodium 40 mg 09/16/17 06:53 09/16/17 06:58 Protonix Iv IVPB 09/16/17 06:54 40 mg ONCE ONE Administration Medical Decision Making - Medical Decision Making 09/16/17 07:37 patient signed out to me by Dr. Tran pending admission for observation for intractable abdominal pain. CT scan shows no acute findings. Will admit patient for observation for pain control. Will check lactate with six hour troponin. *DC/Admit/Observation/Transfer Diagnosis at time of Disposition: Abdominal pain Qualifiers: Abdominal location: epigastric Qualified Code(s): R10.13 - Epigastric pain - Discharge Dispostion Condition at time of disposition: Good Admit: Yes - Referrals Referrals: Fer Jeronimo MD [Primary Care Provider] - - Patient Instructions - Post Discharge Activity
[2017-09-16 07:41] LABS: POIKILOCYTOSIS 1+
[2017-09-16 07:42] LABS: ANISOCYTOSIS 2+; MACROCYTOSIS 2+
[2017-09-16 07:50] LABS: PH,URINE 5.5 (4.5-8); URINE APPEARANCE Clear; URINE BILIRUBIN Negative (NEGATIVE); URINE GLUCOSE (UA) Trace (NEGATIVE); URINE KETONE Trace (NEGATIVE); URINE LEUK ESTERASE Negative (NEGATIVE); URINE NITRITE Negative (NEGATIVE); URINE PROTEIN Negative (NEGATIVE); URINE UROBILINOGEN 0.2 (0.2-1.0)
--- NOTE | 2017-09-16 07:52 | HP ---
CHIEF COMPLAINT: abdominal pain with vomiting PCP: Dr Jeronimo GI: Dr Nam HISTORY OF PRESENT ILLNESS: Patient is a 87-year-old woman with a history of colon cancer, GERD, diverticulitis, colon CA (s/p resection) and cholelithiasis. Patient reports eating dinner yesterday evening 09/15/17, crabcakes/fettuccine with goldberg/wine along with ice cream for dessert. She reports approximately 4 hours later, sharp epigastric pain with vomiting. Patient was recently admitted to this hospital in 05/20 for acute cholecytis, was treated with IV antibiotics and discharged with outpatient follow up to Dr Mathis. She was evaluated by Dr Mathis in 05/20 and elective cholesctectomy was deferred. ER course was notable for: (1) ct of abd/pelvis no acute diverticulitis with cholelithasis (2) wbc 9.8 (3) Recent Travel: none PAST MEDICAL HISTORY: see hpi PAST SURGICAL HISTORY: see hpi Social History: retired, resided at home alone Smoking: none Alcohol: drinks 1 to 2 glasses of wine daily Drugs: none Family History: none Allergies No Known Drug Allergies Allergy (Verified 09/16/17 03:11) HOME MEDICATIONS: REVIEW OF SYSTEMS CONSTITUTIONAL: Absent: fever, chills, diaphoresis, generalized weakness, malaise, loss of appetite, weight change HEENT: Absent: rhinorrhea, nasal congestion, throat pain, throat swelling, difficulty swallowing, mouth swelling, ear pain, eye pain, visual changes CARDIOVASCULAR: Absent: chest pain, syncope, palpitations, irregular heart rate, lightheadedness , peripheral edema RESPIRATORY: Absent: cough, shortness of breath, dyspnea with exertion, orthopnea, wheezing, stridor, hemoptysis GASTROINTESTINAL: present: abdominal pain nausea, vomiting, Absent: abdominal distension, diarrhea, constipation, melena, hematochezia GENITOURINARY: Absent: dysuria, frequency, urgency, hesitancy, hematuria, flank pain, genital pain MUSCULOSKELETAL: Absent: myalgia, arthralgia, joint swelling, back pain, neck pain SKIN: Absent: rash, itching, pallor HEMATOLOGIC/IMMUNOLOGIC: Absent: easy bleeding, easy bruising, lymphadenopathy, frequent infections ENDOCRINE: Absent: unexplained weight gain, unexplained weight loss, heat intolerance, cold intolerance NEUROLOGIC: Absent: headache, focal weakness or paresthesias, dizziness, unsteady gait, seizure, mental status changes, bladder or bowel incontinence PSYCHIATRIC: Absent: anxiety, depression, suicidal or homicidal ideation, hallucinations. PHYSICAL EXAMINATION Vital Signs - 24 hr 09/16/17 09/16/17 03:14 06:00 Temperature 97.4 F L Pulse Rate 102 H Pulse Rate [ 72 Left] Respiratory 20 18 Rate Blood Pressure 134/61 Blood Pressure 131/71 [Right] O2 Sat by Pulse 100 100 Oximetry (%) GENERAL: Awake, alert, and fully oriented, in no acute distress. HEAD: Normal with no signs of trauma. EYES: Pupils equal, round and reactive to light, extraocular movements intact, sclera anicteric, conjunctiva clear. No lid lag. EARS, NOSE, THROAT: Ears normal, nares patent, oropharynx clear without exudates. Moist mucous membranes. NECK: Normal range of motion, supple without lymphadenopathy, JVD, or masses. LUNGS: Breath sounds equal, clear to auscultation bilaterally. No wheezes, and no crackles. No accessory muscle use. HEART: Regular rate and rhythm, normal S1 and S2 without murmur, rub or gallop. ABDOMEN: Soft, nontender, not distended, normoactive bowel sounds, + epigastric tenderness, no guarding, no rebound, no masses. No hepatomegaly or splenomegaly. MUSCULOSKELETAL: Normal range of motion at all joints. No bony deformities or tenderness. No CVA tenderness. UPPER EXTREMITIES: 2+ pulses, warm, well-perfused. No cyanosis. No clubbing. No peripheral edema. LOWER EXTREMITIES: 2+ pulses, warm, well-perfused. No calf tenderness. No peripheral edema. NEUROLOGICAL: Cranial nerves II-XII intact. Normal speech. Normal gait. PSYCHIATRIC: Cooperative. Good eye contact. Appropriate mood and affect. SKIN: Warm, dry, normal turgor, no rashes or lesions noted, normal capillary refill. Laboratory Results - last 24 hr 09/16/17 09/16/17 09/16/17 03:20 03:30 03:30 WBC 9.8 D RBC 3.90 Hgb 14.7 Hct 41.9 MCV 107.5 H MCH 37.8 H MCHC 35.1 RDW 14.5 Plt Count 188 D MPV 10.5 Neutrophils % 69.5 D Lymphocytes % 23.0 D Monocytes % 6.4 Eosinophils % 0.4 D Basophils % 0.7 Poikilocytosis 1+ Anisocytosis 2+ Macrocytosis 2+ Sodium 138 Potassium 3.7 Chloride 105 Carbon Dioxide 22 Anion Gap 11 BUN 22 H Creatinine 0.9 Creat Clearance w eGFR 59.51 Random Glucose 144 H Calcium 9.1 Total Bilirubin 0.6 AST 15 ALT 20 Alkaline Phosphatase 78 Creatine Kinase 59 Troponin I < 0.02 Total Protein 7.8 Albumin 4.4 Lipase 76 ASSESSMENT/PLAN: F/E/N - npo--IVF until GI eval - replete lytes prn ppx - less than 2mn admission - protonix - oob - scd dispo: requires observation admission Problem List - Problem (1) Abdominal pain Assessment/Plan: - ct of abd reviewed, + epigastric tenderness, likely PUD, appreciated input of GI, Dr Nam, patient's private travelift operator, patient is pending GI eval - npo with ivf until GI eval - received protonix in the ED, continue protonix daily, will start carafate Code(s): R10.9 - UNSPECIFIED ABDOMINAL PAIN Qualifiers: Abdominal location: epigastric Qualified Code(s): R10.13 - Epigastric pain (2) Alcohol abuse, daily use Assessment/Plan: - reports drinking 1 to 2 glasses of wine daily, observe for signs of alcohol withdrawal Code(s): F10.10 - ALCOHOL ABUSE, UNCOMPLICATED (3) GERD (gastroesophageal reflux disease) Assessment/Plan: - continue protonix daily Code(s): K21.9 - GASTRO-ESOPHAGEAL REFLUX DISEASE WITHOUT ESOPHAGITIS (4) HTN (hypertension) Assessment/Plan: - b/p at goal continue enalapril and vasotec Code(s): I10 - ESSENTIAL (PRIMARY) HYPERTENSION Visit type - Emergency Visit Emergency Visit: Yes ED Registration Date: 09/16/17 Care time: The patient presented to the Emergency Department on the above date and was hospitalized for further evaluation of their emergent condition. - New Patient This patient is new to me today: Yes Date on this admission: 09/16/17 - Critical Care Critical Care patient: No
[2017-09-16 08:00] LABS: URINE BLOOD Trace-intact (NEGATIVE); URINE COLOR YELLOW
[2017-09-16] MEDS ORDERED: D5-1/2NS+20 MEQ KCL - 20 MEQ/1,000 ML INFUS.BAG IV SCH (08:00)
[2017-09-16] MEDS ORDERED: HYDROmorphone HCL CARPU-JECT 1 MG/1 ML DISP.SYRIN IVPB ONE (08:23)
[2017-09-16] MEDS ORDERED: ENALAPRIL MALEATE 20 MG PO SCH (10:00)
[2017-09-16 10:19] LABS: URINE RBC 0-2 /hpf (0-3)
[2017-09-16 10:20] LABS: URINE WBC 0-1 (0-5)
[2017-09-16] MEDS: amLODIPine BESYLATE 10 MG TABLET (FP) PO SCH (10:54)
[2017-09-16] MEDS: ENALAPRIL MALEATE 10 MG TABLET (FP) PO SCH (10:54)
--- NOTE | 2017-09-16 11:04 | PN ---
Progress Note (short form) - Note Progress Note: Patient seen and consult dictated. Patient with acute onset of epigastric pain last night after eating a meal with pasta/wine. Has hx of gallstones but also with hx of mild intolerance to spicy foods?peptic c/o. Labs with normal CBC, LFTs and lipase. CT results - pending. Has epigastric tenderness but no RUQ discomfort/Graham's sign. May have PUD (less likely acute GB). To arrange for EGD and start patient on PPI daily.
[2017-09-16] MEDS ORDERED: PROPOFOL 20 ML ONE (11:06)
[2017-09-16 11:37] LABS: TROPONIN I (DFP) < 0.03 ng/ml (0.03-0.50)
[2017-09-16] MEDS ORDERED: ACETAMINOPHEN 1000 MG/100 ML VIAL (NON FORMULARY) IVPB ONE (12:00)
[2017-09-16 12:32] VITALS: BMI 23.5
[2017-09-16] MEDS: SUCRALFATE 1 GM/10 ML UNIT DOSE CUPS PO SCH ×3 (12:40→21:20)
[2017-09-16] MEDS ORDERED: ACETAMINOPHEN 325 MG TABLET (FP) PO PRN ×2 (16:32→16:38)
[2017-09-16] MEDS ORDERED: oxyCODONE HCL 5 MG TABLET PO PRN (16:38)
[2017-09-16] MEDS: ONDANSETRON 4 MG/2 ML VIAL IVPUSH PRN (16:55)
[2017-09-16] MEDS: HYDROmorphone HCL CARPU-JECT 1 MG/1 ML DISP.SYRIN IVPB PRN ×2 (16:56→22:31)
--- NOTE | 2017-09-16 17:27 | EKG ---
Test Reason : Blood Pressure : / mmHG Vent. Rate : 076 BPM Atrial Rate : 076 BPM P-R Int : 174 ms QRS Dur : 078 ms QT Int : 406 ms P-R-T Axes : 059 008 031 degrees QTc Int : 456 ms NORMAL SINUS RHYTHM WITH SINUS ARRHYTHMIA NORMAL ECG WHEN COMPARED WITH ECG OF 27-MAY-2017 00:40, NO SIGNIFICANT CHANGE WAS FOUND Confirmed by YANCI MARTINEZ MD ([id number]) on 09/16/2017 5:27:32 PM Referred By: DR CALDERON Confirmed By:YANCI MARTINEZ MD
[2017-09-17] MEDS: HYDROmorphone HCL CARPU-JECT 1 MG/1 ML DISP.SYRIN IVPB PRN ×3 (05:38→18:23)
[2017-09-17] MEDS: SUCRALFATE 1 GM/10 ML UNIT DOSE CUPS PO SCH ×4 (06:48→21:24)
[2017-09-17 07:57] LABS: ALBUMIN 3.5 g/dl (3.5-5.0); ALK PHOS 52 U/L (32-92); ANION GAP 8 (8-16); BILIRUBIN,TOTAL 1.4 mg/dl (0.2-1.0); CALCIUM 8.5 mg/dl (8.4-10.2); CO2 23 mmol/L (22-28); CREATININE 0.9 mg/dl (0.6-1.3); GLUCOSE,RANDOM 138 mg/dl (74-106); MAGNESIUM 1.7 mg/dL (1.8-2.4); PHOSPHOROUS 2.4 mg/dl (2.5-4.6); SGOT/AST 37 U/L (10-42); SGPT/ALT 25 U/L (10-40)
[2017-09-17] MEDS ORDERED: MAGNESIUM SULFATE 2 GM in SODIUM CHLORIDE 100 ML IVPB ONE (07:59)
[2017-09-17 08:45] LABS: MCH 37.8 pg (25.7-33.7); MCHC 34.7 g/dl (32.0-36.0); MEAN CELL VOLUME 108.9 fl (80-96); MEAN PLT VOLUME 10.5 fl (7.5-11.1); PLATELET COUNT 221 K/MM3 (134-434); RDW 14.1 % (11.6-15.6); WHITE BLOOD COUNT 23.2 K/mm3 (4.0-10.8)
--- NOTE | 2017-09-17 08:55 | PN ---
Physical Exam: SUBJECTIVE: Patient seen and examined, reports severe right upper quadrant abdominal pain, 1 episode of vomiting, returned from HIDA scan. OBJECTIVE:Patient is a 87-year-old woman with a history of colon cancer, GERD, diverticulitis, colon CA (s/p resection) and cholelithiasis. Patient was admitted from the emergency department for emergent condition. Vital Signs Period Temp Pulse Resp BP Sys/Duran Pulse Ox Last 24 Hr 97.7 F-99.0 F 78-96 16-20 107-144/61-75 99-100 GENERAL: The patient is awake, alert, and fully oriented, in no acute distress. HEAD: Normal with no signs of trauma. EYES: PERRL, extraocular movements intact, sclera anicteric, conjunctiva clear. No ptosis. ENT: Ears normal, nares patent, oropharynx clear without exudates, dry mucous membranes. NECK: Trachea midline, full range of motion, supple. LUNGS: Breath sounds equal, clear to auscultation bilaterally, no wheezes, no crackles, no accessory muscle use. HEART: Regular rate and rhythm, S1, S2 without murmur, rub or gallop. ABDOMEN: Soft, moderate right upper quadrant tenderness, with guarding, nondistended, normoactive bowel sounds, no rebound, no hepatosplenomegaly, no masses. EXTREMITIES: 2+ pulses, warm, well-perfused, no edema. NEUROLOGICAL: Cranial nerves II through XII grossly intact. Normal speech, gait not observed. PSYCH: Normal mood, normal affect. SKIN: Warm, dry, normal turgor, no rashes or lesions noted Laboratory Results - last 24 hr 09/16/17 09/16/17 09/17/17 03:30 06:15 07:30 WBC 23.2 H D RBC 4.05 Hgb 15.3 D Hct 44.2 D MCV 108.9 H MCH 37.8 H MCHC 34.7 RDW 14.1 Plt Count 221 MPV 10.5 D Neutrophils % No Result Required. Lymphocytes % No Result Required. Sodium Potassium Chloride Carbon Dioxide Anion Gap BUN Creatinine Creat Clearance w eGFR Random Glucose Calcium Phosphorus Magnesium Total Bilirubin AST ALT Alkaline Phosphatase Troponin I < 0.03 L Total Protein Albumin Urine RBC 0-2 Urine WBC 0-1 Ur Epithelial Cells 0-1 09/17/17 07:30 WBC RBC Hgb Hct MCV MCH MCHC RDW Plt Count MPV Neutrophils % Lymphocytes % Sodium 135 L Potassium 4.4 Chloride 104 Carbon Dioxide 23 Anion Gap 8 BUN 14 D Creatinine 0.9 Creat Clearance w eGFR 59.51 Random Glucose 138 H D Calcium 8.5 Phosphorus 2.4 L D Magnesium 1.7 L D Total Bilirubin 1.4 H D AST 37 D ALT 25 D Alkaline Phosphatase 52 Troponin I Total Protein 6.0 L Albumin 3.5 Urine RBC Urine WBC Ur Epithelial Cells Active Medications Generic Name Dose Route Start Last Admin Trade Name Freq PRN Reason Stop Dose Admin Acetaminophen 650 mg 09/16/17 16:32 Tylenol - PO Q4H PRN FEVER OR PAIN Acetaminophen 325 mg 09/16/17 16:38 Tylenol - PO 09/19/17 16:37 Q4H PRN PAIN Amlodipine Besylate 10 mg 09/16/17 10:00 09/17/17 11:39 Norvasc - PO Not Given DAILY HUA Enalapril Maleate 20 mg 09/16/17 10:00 09/17/17 11:40 Vasotec - PO Not Given DAILY HUA Hydromorphone HCl 1 mg 09/16/17 16:31 09/17/17 11:46 Dilaudid Injection - IVPB 1 mg Q6H PRN Administration PAIN Potassium Chloride/Dextrose/Sod Cl 20 meq in 1,000 mls @ 100 mls/hr 09/17/17 11:48 D5-1/2ns+20 Meq Kcl - IV ASDIR HUA Metronidazole 500 mg in 100 mls @ 100 mls/hr 09/17/17 13:00 Flagyl 500mg Premixed Ivpb - IVPB Q8H-IV HUA Ondansetron HCl 4 mg 09/16/17 16:32 09/16/17 16:55 Zofran Injection IVPUSH 4 mg Q8H PRN Administration NAUSEA Oxycodone HCl 5 mg 09/16/17 16:38 Roxicodone - PO Q4H PRN PAIN Pantoprazole Sodium 40 mg 09/17/17 10:00 09/17/17 11:45 Protonix - PO 40 mg DAILY HUA Administration Piperacillin Sod/Tazobactam Sod 3.375 gm 09/17/17 14:00 Zosyn 3.375gm Ivpb (Pre-Docked) IVPB 09/17/17 14:01 ONCE ONE Protocol Sucralfate 1 gm 09/16/17 11:30 09/17/17 11:50 Carafate Oral Suspension - PO 1 gm ACHS HUA Administration IMAGING ct of abd/pelvis no acute diverticulitis with cholelithasis ASSESSMENT/PLAN: 1) GI cholelithasis - pending results of hida scan, lft's wnl, elevate wbc, will start empirc flagyl and zosyn - continue prn dilaudid - Dr Santana consulted and following GERD - s/p egd yesterday, 09/16, gastritis noted - continue protonix and carafate 2) card hypertension - hold analapril and vasotec due to labile b/p 3) ID leukocytosis - wbc 23.2 repeat 26, stat blood and urine cultures ordered, start zosyn and flagyl - follow wbc and fever curve - appreciate ID, Dr Tsai input 4) psych alcohol abuse - reports drinking 1 to 2 glasses of wine daily, continue to observe for signs of alcohol withdrawal f/e/n - npo-->ivf - replete lytes prn ppx - heparin sq - protonix - scd dispo: requires inpatient admission Problem List - Problems (1) Abdominal pain Code(s): R10.9 - UNSPECIFIED ABDOMINAL PAIN Qualifiers: Abdominal location: epigastric Qualified Code(s): R10.13 - Epigastric pain (2) Alcohol abuse, daily use Code(s): F10.10 - ALCOHOL ABUSE, UNCOMPLICATED (3) GERD (gastroesophageal reflux disease) Code(s): K21.9 - GASTRO-ESOPHAGEAL REFLUX DISEASE WITHOUT ESOPHAGITIS (4) HTN (hypertension) Code(s): I10 - ESSENTIAL (PRIMARY) HYPERTENSION Visit type - Emergency Visit Emergency Visit: Yes ED Registration Date: 09/17/17 Care time: The patient presented to the Emergency Department on the above date and was hospitalized for further evaluation of their emergent condition. - New Patient This patient is new to me today: No - Critical Care Critical Care patient: No - Discharge Referral Referred to [facility] Med [facility] No
[2017-09-17] MEDS ORDERED: MAGNESIUM SULF 50% (8.12 MEQ/2 ML-1 GM VIAL) IVPB ONE (09:00)
[2017-09-17] MEDS: amLODIPine BESYLATE 10 MG TABLET (FP) PO SCH (11:39)
[2017-09-17] MEDS: ENALAPRIL MALEATE 10 MG TABLET (FP) PO SCH (11:40)
[2017-09-17] MEDS: PANTOPRAZOLE 40 MG TABLET (FP) PO SCH (11:45)
[2017-09-17] MEDS: D5-1/2NS+20 MEQ KCL - 20 MEQ/1,000 ML INFUS.BAG IV SCH (12:30)
[2017-09-17 12:46] LABS: MCH 37.4 pg (25.7-33.7); MCHC 34.4 g/dl (32.0-36.0); MEAN CELL VOLUME 108.7 fl (80-96); MEAN PLT VOLUME 10.1 fl (7.5-11.1); PLATELET COUNT 187 K/MM3 (134-434); RDW 14.1 % (11.6-15.6); WHITE BLOOD COUNT 26.4 K/mm3 (4.0-10.8)
[2017-09-17 12:52] LABS: REACTIVE LYMPHOCYTES 5 % (0-80)
[2017-09-17 12:53] LABS: PLATELET ESTIMATE ADEQUATE
[2017-09-17] MEDS ORDERED: PIPERACILLIN/TAZOB 3.375 GM/50 ML PRE-DOCKED IVPB ONE (14:00)
[2017-09-17] MEDS: METRONIDAZOLE 500 MG PREMIXED 500 MG/100 ML MG IVPB SCH ×2 (15:16→18:00)
[2017-09-17] MEDS: PIPERACILLIN/TAZOB 3.375 GM 3.375 GM/50 ML BAG IVPB SCH (17:59)
[2017-09-17] MEDS ORDERED: PIPERACILLIN/TAZOB 3.375 GM 50 ML IVPB SCH (18:00)
[2017-09-17] MEDS: ONDANSETRON 4 MG/2 ML VIAL IVPUSH PRN (21:24)
[2017-09-17] MEDS: HEPARIN NA (PORCINE) 5,000 UNITS/ML 1ML VIAL SQ SCH (21:24)
[2017-09-18] MEDS: PIPERACILLIN/TAZOB 3.375 GM 3.375 GM/50 ML BAG IVPB SCH ×3 (01:04→17:24)
[2017-09-18] MEDS: HYDROmorphone HCL CARPU-JECT 1 MG/1 ML DISP.SYRIN IVPB PRN ×3 (01:26→21:36)
[2017-09-18] MEDS: METRONIDAZOLE 500 MG PREMIXED 500 MG/100 ML MG IVPB SCH ×3 (01:48→17:25)
[2017-09-18] MEDS: SUCRALFATE 1 GM/10 ML UNIT DOSE CUPS PO SCH ×5 (06:43→21:29)
[2017-09-18 08:41] LABS: BASOPHIL 0.1 % (0-2.0); EOSINOPHIL 0.6 % (0-4.5); MCH 38.2 pg (25.7-33.7); MCHC 35.3 g/dl (32.0-36.0); MEAN CELL VOLUME 108.3 fl (80-96); MEAN PLT VOLUME 10.1 fl (7.5-11.1); NEUTROPHILS 80.4 % (42.8-82.8); PLATELET COUNT 134 K/MM3 (134-434); RDW 13.9 % (11.6-15.6); WHITE BLOOD COUNT 15.3 K/mm3 (4.0-10.8)
--- NOTE | 2017-09-18 08:44 | PN ---
Physical Exam: SUBJECTIVE: Patient seen and examined, reports an improvement of abdominal pain , denies any tactile fever. OBJECTIVE:Patient is a 87-year-old woman with a history of colon cancer, GERD, diverticulitis, colon CA (s/p resection) and cholelithiasis. Patient was admitted from the emergency department for acute cholecytits. Vital Signs Period Temp Pulse Resp BP Sys/Duran Pulse Ox Last 24 Hr 98.3 F-98.7 F 72-89 16-18 90-118/52-57 94-96 GENERAL: The patient is awake, alert, and fully oriented, in no acute distress. HEAD: Normal with no signs of trauma. EYES: PERRL, extraocular movements intact, sclera anicteric, conjunctiva clear. No ptosis. ENT: Ears normal, nares patent, oropharynx clear without exudates, moist mucous membranes. NECK: Trachea midline, full range of motion, supple. LUNGS: Breath sounds equal, clear to auscultation bilaterally, no wheezes, no crackles, no accessory muscle use. HEART: Regular rate and rhythm, S1, S2 without murmur, rub or gallop. ABDOMEN: Soft, + sullivan's sign, nondistended, normoactive bowel sounds, no guarding, no rebound, no hepatosplenomegaly, no masses. EXTREMITIES: 2+ pulses, warm, well-perfused, no edema. NEUROLOGICAL: Cranial nerves II through XII grossly intact. Normal speech, gait not observed. PSYCH: Normal mood, normal affect. SKIN: Warm, dry, normal turgor, no rashes or lesions noted Laboratory Results - last 24 hr CBC WBC 15.3 K/mm3 (4.0-10.8) H D 09/18/17 07:00 RBC 3.17 M/mm3 (3.60-5.2) L D 09/18/17 07:00 Hgb 12.1 GM/dl (10.7-15.3) D 09/18/17 07:00 Hct 34.4 % (32.4-45.2) D 09/18/17 07:00 MCV 108.3 fl (80-96) H 09/18/17 07:00 MCH 38.2 pg (25.7-33.7) H 09/18/17 07:00 MCHC 35.3 g/dl (32.0-36.0) 09/18/17 07:00 RDW 13.9 % (11.6-15.6) 09/18/17 07:00 Plt Count 134 K/MM3 (134-434) D 09/18/17 07:00 MPV 10.1 fl (7.5-11.1) 09/18/17 07:00 Neutrophils % 80.4 % (42.8-82.8) D 09/18/17 07:00 Neutrophils % (Manual) No Result Required. 09/17/17 Unknown Band Neutrophils % No Result Required. 09/17/17 Unknown Lymphocytes % 11.1 % (8-40) D 09/18/17 07:00 Lymphocytes % (Manual) 10.0 % (8-40) 09/17/17 07:30 Monocytes % 7.8 % (3.8-10.2) 09/18/17 07:00 Monocytes % (Manual) 6 % (3.8-10.2) 09/17/17 07:30 Eosinophils % 0.6 % (0-4.5) D 09/18/17 07:00 Basophils % 0.1 % (0-2.0) 09/18/17 07:00 Platelet Estimate Adequate 09/17/17 07:30 Platelet Comment No Result Required. 09/17/17 07:30 Poikilocytosis 1+ 09/16/17 03:30 Anisocytosis 2+ 09/16/17 03:30 Macrocytosis 2+ 09/16/17 03:30 CMP Sodium 133 mmol/L (136-145) L 09/18/17 07:00 Potassium 4.0 mmol/L (3.5-5.1) 09/18/17 07:00 Chloride 103 mmol/L (98-107) 09/18/17 07:00 Carbon Dioxide 24 mmol/L (22-28) 09/18/17 07:00 Anion Gap 6 (8-16) L 09/18/17 07:00 BUN 17 mg/dl (7-18) D 09/18/17 07:00 Creatinine 0.9 mg/dl (0.6-1.3) 09/18/17 07:00 Creat Clearance w eGFR 59.51 (>60) 09/18/17 07:00 Random Glucose 99 mg/dl (74-106) D 09/18/17 07:00 Calcium 7.9 mg/dl (8.4-10.2) L 09/18/17 07:00 Phosphorus 1.8 mg/dl (2.5-4.6) L D 09/18/17 07:00 Magnesium 2.1 mg/dL (1.8-2.4) D 09/18/17 07:00 Total Bilirubin 1.3 mg/dl (0.2-1.0) H 09/18/17 07:00 AST 30 U/L (10-42) 09/18/17 07:00 ALT 30 U/L (10-40) 09/18/17 07:00 Alkaline Phosphatase 46 U/L (32-92) 09/18/17 07:00 Creatine Kinase 59 IU/L (26-192) 09/16/17 03:30 Troponin I < 0.03 ng/ml (0.03-0.50) L 09/16/17 03:30 Total Protein 5.4 g/dl (6.4-8.3) L 09/18/17 07:00 Albumin 2.8 g/dl (3.5-5.0) L 09/18/17 07:00 Lipase 76 U/L (73-393) 09/16/17 03:30 Active Medications Generic Name Dose Route Start Last Admin Trade Name Freq PRN Reason Stop Dose Admin Acetaminophen 650 mg 09/16/17 16:32 Tylenol - PO Q4H PRN FEVER OR PAIN Acetaminophen 325 mg 09/16/17 16:38 Tylenol - PO 09/19/17 16:37 Q4H PRN PAIN Amlodipine Besylate 10 mg 09/16/17 10:00 09/17/17 11:39 Norvasc - PO Not Given DAILY [facility] Enalapril Maleate 20 mg 09/16/17 10:00 09/17/17 11:40 Vasotec - PO Not Given DAILY [facility] Heparin Sodium (Porcine) 5,000 unit 09/17/17 22:00 09/17/17 21:24 Heparin - SQ 5,000 unit BID HUA Administration Hydromorphone HCl 1 mg 09/16/17 16:31 09/18/17 08:03 Dilaudid Injection - IVPB 1 mg Q6H PRN Administration PAIN Potassium Chloride/Dextrose/Sod Cl 20 meq in 1,000 mls @ 100 mls/hr 09/17/17 11:48 09/17/17 12:30 D5-1/2ns+20 Meq Kcl - IV 100 mls/hr ASDIR HUA Administration Metronidazole 500 mg in 100 mls @ 100 mls/hr 09/17/17 13:00 09/18/17 01:48 Flagyl 500mg Premixed Ivpb - IVPB 100 mls/hr Q8H-IV [facility] Administration Piperacillin Sod/Tazobactam Sod 3.375 gm in 50 mls @ 100 mls/hr 09/17/17 18: 00 09/18/17 01:04 Zosyn 3.375gm Ivpb (Pre-Docked) IVPB 100 mls/hr Q8H-IV [facility]UA Administration Protocol Ondansetron HCl 4 mg 09/16/17 16:32 09/17/17 21:24 Zofran Injection IVPUSH 4 mg Q8H PRN Administration NAUSEA Oxycodone HCl 5 mg 09/16/17 16:38 Roxicodone - PO Q4H PRN PAIN Pantoprazole Sodium 40 mg 09/17/17 10:00 09/17/17 11:45 Protonix - PO 40 mg DAILY [facility]UA Administration Sucralfate 1 gm 09/16/17 11:30 09/17/17 21:24 Carafate Oral Suspension - PO 1 gm ACHS HUA Administration IMAGING ct of abd/pelvis no acute diverticulitis with cholelithasis hida scan: findings compatible with acute cholecytitis. ASSESSMENT/PLAN: 1) GI acute cholecytis - results of hida scan reviewed with Dr Santana, advised percutaneous drainage gallbladder, discussed with Dr Espinoza, interventional radiologist, patient to remain NPO, pending procedure tommorow. - continue flagyl and zosyn - wbc trending downward, follow blood cultures - continue prn dilaudid - Dr Santana consulted and following GERD - s/p egd yesterday, 09/16, gastritis noted - continue protonix and carafate 2) card hypertension - hold enalapril and vasotec due to labile b/p 3) ID leukocytosis - wbc 15.3, patient is afebrile, likely source of billary sepsis - continue zosyn and flagyl - follow wbc and fever curve - appreciate ID, Dr Tsai input 4) psych alcohol abuse - reports drinking 1 to 2 glasses of wine daily, continue to observe for signs of alcohol withdrawal f/e/n - npo-->ivf - replete lytes prn ppx - hold heparin - protonix - scd dispo: requires inpatient admission Problem List - Problems (1) Abdominal pain Code(s): R10.9 - UNSPECIFIED ABDOMINAL PAIN Qualifiers: Abdominal location: epigastric Qualified Code(s): R10.13 - Epigastric pain (2) Alcohol abuse, daily use Code(s): F10.10 - ALCOHOL ABUSE, UNCOMPLICATED (3) GERD (gastroesophageal reflux disease) Code(s): K21.9 - GASTRO-ESOPHAGEAL REFLUX DISEASE WITHOUT ESOPHAGITIS (4) HTN (hypertension) Code(s): I10 - ESSENTIAL (PRIMARY) HYPERTENSION Visit type - Emergency Visit Emergency Visit: Yes ED Registration Date: 09/17/17 Care time: The patient presented to the Emergency Department on the above date and was hospitalized for further evaluation of their emergent condition. - New Patient This patient is new to me today: No - Critical Care Critical Care patient: No
[2017-09-18] MEDS: HEPARIN NA (PORCINE) 5,000 UNITS/ML 1ML VIAL SQ SCH (09:01)
[2017-09-18] MEDS: PANTOPRAZOLE 40 MG TABLET (FP) PO SCH (09:01)
[2017-09-18] MEDS: amLODIPine BESYLATE 10 MG TABLET (FP) PO SCH (09:01)
[2017-09-18 09:04] LABS: ALBUMIN 2.8 g/dl (3.5-5.0); ALK PHOS 46 U/L (32-92); ANION GAP 6 (8-16); BILIRUBIN,TOTAL 1.3 mg/dl (0.2-1.0); CALCIUM 7.9 mg/dl (8.4-10.2); CO2 24 mmol/L (22-28); CREATININE 0.9 mg/dl (0.6-1.3); GLUCOSE,RANDOM 99 mg/dl (74-106); MAGNESIUM 2.1 mg/dL (1.8-2.4); PHOSPHOROUS 1.8 mg/dl (2.5-4.6); SGOT/AST 30 U/L (10-42); SGPT/ALT 30 U/L (10-40); TOT PROT 5.4 g/dl (6.4-8.3)
--- NOTE | 2017-09-18 09:38 | PN ---
Progress Note (short form) - Note Progress Note: ID Consult dictated Acute (recurrent) cholecystitis Leukocytosis, possible biliary sepsis Pending c/s continue empiric zosyn/flagyl
--- NOTE | 2017-09-18 10:02 | CONS ---
DATE OF CONSULTATION: 09/18/2017 HISTORY: The patient is an 87-year-old female with a history of acute cholecystitis in May of 2017, now evaluated for recurrent acute cholecystitis. She was admitted to the hospital with a 4-hour history of postprandial epigastric pain and nausea. She presented to the emergency room. Her CAT scan of the abdomen and pelvis showed cholelithiasis without evidence of acute cholecystitis. She was seen in consultation by Gastroenterology and underwent an EGD which revealed gastritis. Her course was significant for continued epigastric and right upper quadrant pain. HIDA scan was performed and revealed nonvisualization of the gallbladder consistent with cystic duct obstruction. Her course was complicated by white blood cell count of 26,000. She was empirically treated with Zosyn and Flagyl. At the present time she is awake and alert, supine in bed. She has no complaints of epigastric or right upper quadrant pain at the present time. She denies any nausea or vomiting. She has not had a bowel movement for the past several days. PAST MEDICAL HISTORY: Positive colon cancer status post resection, gastroesophageal reflux, history of cholelithiasis and acute cholecystitis in May of 2017. ALLERGIES: No known allergies. SOCIAL HISTORY: Lives at home, nonsmoker. REVIEW OF SYSTEMS: Neurologic: No loss of consciousness, seizure activity, or focal weakness. Cardiac: Negative chest pain or palpitations. Respiratory: Negative cough or sputum production. Gastrointestinal: As per HPI. Genitourinary: Negative for urinary tract infection. LABORATORY DATA: White count 15.3, hematocrit 34.4, platelet count 134, creatinine 0.9. Total bilirubin 1.4, alkaline phosphatase 52, AST 37. Urinalysis 0-1 white cell. PHYSICAL EXAMINATION: General: She is awake and alert, supine in bed, in no acute distress. Vital Signs: Temperature 98.3, blood pressure 97/52, pulse 78 and regular, respirations 18 per minute. HEENT: Sclerae are anicteric. Cardiovascular: Heart sounds S1, S2. Respiratory: Lungs clear bilaterally. No rhonchi, rales, or wheezing. Gastrointestinal: Abdomen soft. Mild epigastric and right upper quadrant tenderness to palpation. No mass, rebound, or rigidity. Extremities: Edema 1+. IMPRESSION: 1. Acute cholecystitis. 2. Marked leukocytosis, possible sepsis secondary to biliary tract source. 3. History of colon cancer status post resection. Await culture results. Empiric antibiotic coverage of biliary tract pathogens with Zosyn and Flagyl. Gastroenterology and surgical followup. Thank you for the kind referral. CHITO WHATLEY M.D. [id number]
[2017-09-18] MEDS: D5-1/2NS+20 MEQ KCL - 20 MEQ/1,000 ML INFUS.BAG IV SCH (12:06)
--- NOTE | 2017-09-18 13:52 | PN ---
Progress Note (short form) - Note Progress Note: surgery pt seen and examined. yesterday. 87f well known to be for acute cholecystitis this summer refusing surgery and diverticulitis a year ago. previous partial colectomy. Pt admitted for epigastric pain and negative egd done. ct showed gallstones. on exam abd with ruq tenderness. HIDA ordered by me which is positive but suboptimal study. WBC markedly elevated yesterday with some improvement today. Plan- would not operate in the acute setting. Recommend percutaneous drainage. Would do interval cholecystectomy after 3 weeks. Pt could cont with medical mangement only but markedly elevated wbc and continued pain is concerning. Spoke With Marium Matias.
[2017-09-18] MEDS ORDERED: SODIUM PHOSPHATE IVPB ONE (14:30)
[2017-09-18] MEDS ORDERED: DEXTROSE IVPB ONE (14:30)
[2017-09-18] MEDS ORDERED: WATER IVPB ONE (14:30)
[2017-09-18 14:36] LABS: INR 1.14 (0.82-1.09); PROTHROMBIN TIME (PATIENT) 12.7 SEC (10.2-13.0)
--- NOTE | 2017-09-18 14:44 | PATH ---
Surgical Pathology Report Patient Name: HAYLEE TITUS Med. Rec. #: [id number] /Age/Gender: 1930 (Age: 87) / F Account: [id number] Location: [facility] MED-SURG Taken: 09/16/2017 Received: 09/16/2017 Reported: 09/18/2017 Physicians: Dexter Nam M.D. Specimen(s) Received A: BX DUODENUM B: BX ANTRUM Clinical History Peptic ulcer disease Abdominal pain Final Diagnosis A. DUODENUM, BIOPSY: DUODENAL MUCOSA WITH NO PATHOLOGIC FINDINGS. B. ANTRUM, BIOPSY: GASTRIC MUCOSA SHOWING MINIMAL CHRONIC INFLAMMATION. IMMUNOSTAIN IS NEGATIVE FOR H. PYLORI ORGANISMS. Electronically Signed Trinh Quinones M.D. Gross Description A. Received in formalin, labeled "duodenum" are 2 ortez, irregular portions of soft tissue averaging 0.4 cm. in greatest dimension. The specimens are submitted in toto in one cassette. B. Received in formalin, labeled "antrum" are 2 ortez, irregular portions of soft tissue measuring 0.3 and 0.4 cm. in greatest dimension. The specimens are submitted in toto in one cassette. 09/17/201709/17/2017
[2017-09-19] MEDS: METRONIDAZOLE 500 MG PREMIXED 500 MG/100 ML MG IVPB SCH ×3 (01:00→17:31)
[2017-09-19] MEDS: PIPERACILLIN/TAZOB 3.375 GM 3.375 GM/50 ML BAG IVPB SCH ×3 (01:00→17:08)
[2017-09-19] MEDS: SUCRALFATE 1 GM/10 ML UNIT DOSE CUPS PO SCH ×4 (07:02→22:02)
--- NOTE | 2017-09-19 08:06 | PN ---
Physical Exam: SUBJECTIVE: Patient seen and examined, reports pain to right upper quadrant, denies any tactle fevers, pending percutanous cody tube placement today OBJECTIVE: Patient is a 87-year-old woman with a history of colon cancer, GERD, diverticulitis, colon CA (s/p resection) and cholelithiasis. Patient was admitted from the emergency department for acute cholecytits. Vital Signs Period Temp Pulse Resp BP Sys/Duran Pulse Ox Last 24 Hr 98.5 F-99.1 F 77-88 16-19 99-128/55-68 95-96 GENERAL: The patient is awake, alert, and fully oriented, in no acute distress. HEAD: Normal with no signs of trauma. EYES: PERRL, extraocular movements intact, sclera anicteric, conjunctiva clear. No ptosis. ENT: Ears normal, nares patent, oropharynx clear without exudates, moist mucous membranes. NECK: Trachea midline, full range of motion, supple. LUNGS: Breath sounds equal, clear to auscultation bilaterally, no wheezes, no crackles, no accessory muscle use. HEART: Regular rate and rhythm, S1, S2 without murmur, rub or gallop. ABDOMEN: Soft, +sullivan's sign, nondistended, normoactive bowel sounds, no guarding, no rebound, no hepatosplenomegaly, no masses. EXTREMITIES: 2+ pulses, warm, well-perfused, no edema. NEUROLOGICAL: Cranial nerves II through XII grossly intact. Normal speech, gait not observed. PSYCH: Normal mood, normal affect. SKIN: Warm, dry, normal turgor, no rashes or lesions noted Laboratory Results - last 24 hr 09/18/17 09/18/17 09/18/17 07:00 07:00 14:12 WBC 15.3 H D RBC 3.17 L D Hgb 12.1 D Hct 34.4 D MCV 108.3 H MCH 38.2 H MCHC 35.3 RDW 13.9 Plt Count 134 D MPV 10.1 Neutrophils % 80.4 D Lymphocytes % 11.1 D Monocytes % 7.8 Eosinophils % 0.6 D Basophils % 0.1 PT with INR 12.7 INR 1.14 Sodium 133 L Potassium 4.0 Chloride 103 Carbon Dioxide 24 Anion Gap 6 L BUN 17 D Creatinine 0.9 Creat Clearance w eGFR 59.51 Random Glucose 99 D Calcium 7.9 L Phosphorus 1.8 L D Magnesium 2.1 D Total Bilirubin 1.3 H AST 30 ALT 30 Alkaline Phosphatase 46 Total Protein 5.4 L Albumin 2.8 L Active Medications Generic Name Dose Route Start Last Admin Trade Name Freq PRN Reason Stop Dose Admin Acetaminophen 650 mg 09/16/17 16:32 Tylenol - PO Q4H PRN FEVER OR PAIN Acetaminophen 325 mg 09/16/17 16:38 Tylenol - PO 09/19/17 16:37 Q4H PRN PAIN Amlodipine Besylate 10 mg 09/16/17 10:00 09/18/17 09:01 Norvasc - PO 10 mg DAILY HUA Administration Enalapril Maleate 20 mg 09/16/17 10:00 09/17/17 11:40 Vasotec - PO Not Given DAILY HUA Hydromorphone HCl 1 mg 09/16/17 16:31 09/18/17 21:36 Dilaudid Injection - IVPB 1 mg Q6H PRN Administration PAIN Potassium Chloride/Dextrose/Sod Cl 20 meq in 1,000 mls @ 100 mls/hr 09/17/17 11:48 09/18/17 12:06 D5-1/2ns+20 Meq Kcl - IV 100 mls/hr ASDIR HUA Administration Metronidazole 500 mg in 100 mls @ 100 mls/hr 09/17/17 13:00 09/19/17 01:00 Flagyl 500mg Premixed Ivpb - IVPB 100 mls/hr Q8H-IV HUA Administration Piperacillin Sod/Tazobactam Sod 3.375 gm in 50 mls @ 100 mls/hr 09/17/17 18: 00 09/19/17 01:00 Zosyn 3.375gm Ivpb (Pre-Docked) IVPB 100 mls/hr Q8H-IV HUA Administration Protocol Ondansetron HCl 4 mg 09/16/17 16:32 09/17/17 21:24 Zofran Injection IVPUSH 4 mg Q8H PRN Administration NAUSEA Oxycodone HCl 5 mg 09/16/17 16:38 Roxicodone - PO Q4H PRN PAIN Pantoprazole Sodium 40 mg 09/17/17 10:00 09/18/17 09:01 Protonix - PO 40 mg DAILY HUA Administration Sucralfate 1 gm 09/16/17 11:30 09/19/17 07:02 Carafate Oral Suspension - PO 1 gm ACHS HUA Administration Microbiology 09/17/17 Unknown Blood - Peripheral Venous Blood Culture - Preliminary NO GROWTH OBTAINED AFTER 48 HOURS, INCUBATION TO CONTINUE FOR 3 DAYS. 09/17/17 Unknown Blood - Peripheral Venous Blood Culture - Preliminary NO GROWTH OBTAINED AFTER 48 HOURS, INCUBATION TO CONTINUE FOR 3 DAYS. 09/17/17 18:00 Urine - Urine Clean Catch Urine Culture - Final Contaminated: Please Repeat IMAGING ct of abd/pelvis no acute diverticulitis with cholelithasis hida scan: findings compatible with acute cholecytitis. ASSESSMENT/PLAN: 1) GI acute cholecytis - pending perc drainage of gallbladder today in IR - continue flagyl and zosyn - wbc wnl, blood cultures ntd - continue prn dilaudid - Dr Santana consulted and following GERD - s/p egd yesterday, 09/16, gastritis noted - continue protonix and carafate 2) card hypertension - hold enalapril and vasotec due to labile b/p 3) ID leukocytosis - resolved, patient is afebrile, likely source of billary sepsis - continue zosyn and flagyl - follow wbc and fever curve - appreciate ID, Dr Tsai input 4) psych alcohol abuse - reports drinking 1 to 2 glasses of wine daily, continue to observe for signs of alcohol withdrawal f/e/n - npo-->ivf - replete lytes prn naphos gtt ordered ppx - hold heparin - protonix - scd dispo: requires inpatient admission Problem List - Problems (1) Abdominal pain Code(s): R10.9 - UNSPECIFIED ABDOMINAL PAIN Qualifiers: Abdominal location: epigastric Qualified Code(s): R10.13 - Epigastric pain (2) Alcohol abuse, daily use Code(s): F10.10 - ALCOHOL ABUSE, UNCOMPLICATED (3) GERD (gastroesophageal reflux disease) Code(s): K21.9 - GASTRO-ESOPHAGEAL REFLUX DISEASE WITHOUT ESOPHAGITIS (4) HTN (hypertension) Code(s): I10 - ESSENTIAL (PRIMARY) HYPERTENSION Visit type - Emergency Visit Emergency Visit: Yes ED Registration Date: 09/17/17 Care time: The patient presented to the Emergency Department on the above date and was hospitalized for further evaluation of their emergent condition. - New Patient This patient is new to me today: No - Critical Care Critical Care patient: No - Discharge Referral Referred to [facility] No
[2017-09-19 08:51] LABS: BASOPHIL 0.3 % (0-2.0); EOSINOPHIL 1.7 % (0-4.5); MCH 37.9 pg (25.7-33.7); MCHC 34.8 g/dl (32.0-36.0); MEAN CELL VOLUME 108.9 fl (80-96); MEAN PLT VOLUME 9.5 fl (7.5-11.1); NEUTROPHILS 73.5 % (42.8-82.8); PLATELET COUNT 134 K/MM3 (134-434); RDW 13.5 % (11.6-15.6); WHITE BLOOD COUNT 8.8 K/mm3 (4.0-10.8)
[2017-09-19 08:52] LABS: ALBUMIN 2.9 g/dl (3.5-5.0); ALK PHOS 60 U/L (32-92); ANION GAP 8 (8-16); BILIRUBIN,TOTAL 0.9 mg/dl (0.2-1.0); CALCIUM 8.1 mg/dl (8.4-10.2); CO2 24 mmol/L (22-28); CREATININE 0.9 mg/dl (0.6-1.3); GLUCOSE,RANDOM 99 mg/dl (74-106); PHOSPHOROUS 1.9 mg/dl (2.5-4.6); SGOT/AST 21 U/L (10-42); SGPT/ALT 24 U/L (10-40); TOT PROT 5.7 g/dl (6.4-8.3)
[2017-09-19] MEDS ORDERED: DEXTROSE IVPB ONE ×2 (09:30→18:30)
[2017-09-19] MEDS ORDERED: WATER IVPB ONE ×2 (09:30→18:30)
[2017-09-19] MEDS ORDERED: SODIUM PHOSPHATE IVPB ONE ×2 (09:30→18:30)
--- NOTE | 2017-09-19 10:32 | PN ---
Progress Note, Physician History of Present Illness: Seen in [facility] awaiting cholecystostomy Reports less RUQ/ epigastric pain No N/V + BM No fever/chills WBC improved Now WNL BC no growth - Current Medication List Current Medications: Active Medications Acetaminophen (Tylenol -) 650 mg PO Q4H PRN PRN Reason: FEVER OR PAIN Acetaminophen (Tylenol -) 325 mg PO Q4H PRN PRN Reason: PAIN Stop: 09/19/17 16:37 Amlodipine Besylate (Norvasc -) 10 mg PO DAILY [facility] Last Admin: 09/18/17 09:01 Dose: 10 mg Enalapril Maleate (Vasotec -) 20 mg PO DAILY [facility] Last Admin: 09/17/17 11:40 Dose: Not Given Hydromorphone HCl (Dilaudid Injection -) 1 mg IVPB Q6H PRN PRN Reason: PAIN Last Admin: 09/18/17 21:36 Dose: 1 mg Potassium Chloride/Dextrose/Sod Cl (D5-1/2ns+20 Meq Kcl -) 20 meq in 1,000 mls @ 100 mls/hr IV ASDIR HUA Last Admin: 09/18/17 12:06 Dose: 100 mls/hr Metronidazole (Flagyl 500mg Premixed Ivpb -) 500 mg in 100 mls @ 100 mls/hr IVPB Q8H-IV [facility] Last Admin: 09/19/17 01:00 Dose: 100 mls/hr Piperacillin Sod/Tazobactam Sod (Zosyn 3.375gm Ivpb (Pre-Docked)) 3.375 gm in 50 mls @ 100 mls/hr IVPB Q8H-IV HUA PRN Reason: Protocol Last Admin: 09/19/17 01:00 Dose: 100 mls/hr Sodium Phosphate 21 mm/ (Dextrose) 250 mls @ 62.5 mls/hr IVPB ONCE ONE Stop: 09/19/17 13:29 Ondansetron HCl (Zofran Injection) 4 mg IVPUSH Q8H PRN PRN Reason: NAUSEA Last Admin: 09/17/17 21:24 Dose: 4 mg Oxycodone HCl (Roxicodone -) 5 mg PO Q4H PRN PRN Reason: PAIN Pantoprazole Sodium (Protonix -) 40 mg PO DAILY [facility] Last Admin: 09/18/17 09:01 Dose: 40 mg Sucralfate (Carafate Oral Suspension -) 1 gm PO ACHS [facility] Last Admin: 09/19/17 07:02 Dose: 1 gm - Objective Vital Signs: Vital Signs Temperature 98.6 F 09/19/17 09:01 Pulse Rate 74 09/19/17 09:01 Respiratory Rate 19 09/19/17 09:01 Blood Pressure 122/80 09/19/17 09:01 O2 Sat by Pulse Oximetry (%) 95 09/19/17 05:52 Constitutional: Yes: No Distress Eyes: Yes: Conjunctiva Clear Cardiovascular: Yes: Regular Rate and Rhythm, S1, S2 Respiratory: Yes: CTA Bilaterally Gastrointestinal: Yes: Normal Bowel Sounds, Soft, Tenderness, Other (+ RUQ tenderness to palp) Edema: No Labs: CBC, BMP 09/19/17 07:00 09/19/17 07:00 INR, PTT INR 1.14 (0.82-1.09) 09/18/17 14:12 Assessment/Plan Acute cholecystitis Leukocytosis- improved Continue zosyn/ flagyl For percutaneous cholecystostomy today
[2017-09-19] MEDS ORDERED: LORazepam 2 MG/ML SDV VIAL IVPUSH PRN (14:35)
--- NOTE | 2017-09-19 15:22 | PN ---
Progress Note (short form) - Note Progress Note: surgery pt off floor at [facility] getting percutaneous drainage. would recommend interval cholecystectomy in 3 weeks after procedure. should be able to resume diet after the procedure.
[2017-09-19] MEDS: ENALAPRIL MALEATE 10 MG TABLET (FP) PO SCH (15:44)
[2017-09-19] MEDS: PANTOPRAZOLE 40 MG TABLET (FP) PO SCH (15:44)
[2017-09-19] MEDS: D5-1/2NS+20 MEQ KCL - 20 MEQ/1,000 ML INFUS.BAG IV SCH (15:45)
[2017-09-20] MEDS: PIPERACILLIN/TAZOB 3.375 GM 3.375 GM/50 ML BAG IVPB SCH ×2 (01:22→10:14)
[2017-09-20] MEDS: METRONIDAZOLE 500 MG PREMIXED 500 MG/100 ML MG IVPB SCH ×2 (02:24→10:14)
[2017-09-20 05:22] VITALS: BP 128/76; PULSE 77; TEMP 98
[2017-09-20] MEDS: SUCRALFATE 1 GM/10 ML UNIT DOSE CUPS PO SCH ×2 (07:07→10:15)
[2017-09-20] MEDS: ENALAPRIL MALEATE 10 MG TABLET (FP) PO SCH (10:14)
[2017-09-20] MEDS: amLODIPine BESYLATE 10 MG TABLET (FP) PO SCH (10:14)
[2017-09-20] MEDS: PANTOPRAZOLE 40 MG TABLET (FP) PO SCH (10:14)
--- NOTE | 2017-09-20 12:18 | PN ---
Progress Note, Physician History of Present Illness: S/P percutaneous cholecystostomy No c/o RUQ/ epigastric pain No N/V + BM No fever/chills WBC improved WNL BC no growth - Current Medication List Current Medications: Active Medications Acetaminophen (Tylenol -) 650 mg PO Q4H PRN PRN Reason: FEVER OR PAIN Amlodipine Besylate (Norvasc -) 10 mg PO DAILY [facility] Last Admin: 09/20/17 10:14 Dose: 10 mg Enalapril Maleate (Vasotec -) 20 mg PO DAILY [facility] Last Admin: 09/20/17 10:14 Dose: 20 mg Hydromorphone HCl (Dilaudid Injection -) 1 mg IVPB Q6H PRN PRN Reason: PAIN Last Admin: 09/18/17 21:36 Dose: 1 mg Potassium Chloride/Dextrose/Sod Cl (D5-1/2ns+20 Meq Kcl -) 20 meq in 1,000 mls @ 100 mls/hr IV ASDIR HUA Last Admin: 09/19/17 15:45 Dose: 100 mls/hr Metronidazole (Flagyl 500mg Premixed Ivpb -) 500 mg in 100 mls @ 100 mls/hr IVPB Q8H-IV [facility] Last Admin: 09/20/17 10:14 Dose: 100 mls/hr Piperacillin Sod/Tazobactam Sod (Zosyn 3.375gm Ivpb (Pre-Docked)) 3.375 gm in 50 mls @ 100 mls/hr IVPB Q8H-IV HUA PRN Reason: Protocol Last Admin: 09/20/17 10:14 Dose: 100 mls/hr Lorazepam (Ativan Injection -) 0.5 mg IVPUSH Q6H PRN PRN Reason: ANXIETY Ondansetron HCl (Zofran Injection) 4 mg IVPUSH Q8H PRN PRN Reason: NAUSEA Last Admin: 09/17/17 21:24 Dose: 4 mg Oxycodone HCl (Roxicodone -) 5 mg PO Q4H PRN PRN Reason: PAIN Last Admin: 09/19/17 19:18 Dose: 5 mg Pantoprazole Sodium (Protonix -) 40 mg PO DAILY [facility] Last Admin: 09/20/17 10:14 Dose: 40 mg Sucralfate (Carafate Oral Suspension -) 1 gm PO ACHS [facility] Last Admin: 09/20/17 10:15 Dose: 1 gm - Objective Vital Signs: Vital Signs Temperature 98.0 F 09/20/17 05:21 Pulse Rate 77 09/20/17 05:21 Respiratory Rate 18 09/20/17 05:21 Blood Pressure 128/76 09/20/17 05:21 O2 Sat by Pulse Oximetry (%) 98 09/20/17 05:21 Constitutional: Yes: No Distress Eyes: Yes: Conjunctiva Clear Cardiovascular: Yes: Regular Rate and Rhythm, S1, S2 Respiratory: Yes: CTA Bilaterally Gastrointestinal: Yes: Normal Bowel Sounds, Soft, Other (+ RUQ biliary drain in place dark bile in collection bag). No: Tenderness Edema: No Labs: CBC, BMP 09/19/17 07:00 09/19/17 07:00 INR, PTT INR 1.14 (0.82-1.09) 09/18/17 14:12 Assessment/Plan Acute cholecystitis S/P percutaneous biliary drainage Leukocytosis- resolved Advance diet May substitute Augmentin 875mg po bid x 7d
--- NOTE | 2017-09-20 13:00 | DS ---
Physical Exam: SUBJECTIVE: Patient seen and examined, reports feeling better, denies any abdominal pain, tolerating diet. OBJECTIVE:Patient is a 87-year-old woman with a history of colon cancer, GERD, diverticulitis, colon CA (s/p resection) and cholelithiasis. Patient reports eating dinner yesterday evening 09/15/17, crabcakes/fettuccine with goldberg/wine along with ice cream for dessert. She reports approximately 4 hours later, sharp epigastric pain with vomiting. Patient was recently admitted to this hospital in 05/20 for acute cholecytis, was treated with IV antibiotics and discharged with outpatient follow up to Dr Mathis. She was evaluated by Dr Mathis in 05/20 and elective cholesctectomy was deferred. ER course was notable for: (1) ct of abd/pelvis no acute diverticulitis with cholelithasis (2) wbc 9.8 Vital Signs Period Temp Pulse Resp BP Sys/Duran Pulse Ox Last 24 Hr 97.9 F-98.4 F 76-80 18-18 116-137/70-76 97-98 PHYSICAL EXAM GENERAL: The patient is awake, alert, and fully oriented, in no acute distress. HEAD: Normal with no signs of trauma. EYES: PERRL, extraocular movements intact, sclera anicteric, conjunctiva clear. ENT: Ears normal, nares patent, oropharynx clear without exudates, moist mucous membranes. NECK: Trachea midline, full range of motion, supple. LUNGS: Breath sounds equal, clear to auscultation bilaterally, no wheezes, no crackles, no accessory muscle use. HEART: Regular rate and rhythm, S1, S2 without murmur, rub or gallop. ABDOMEN: Soft, right upper quadrant tenderness, cody tube in place, draining dark bile, nondistended, normoactive bowel sounds, no guarding, no rebound, no hepatosplenomegaly, no masses. EXTREMITIES: 2+ pulses, warm, well-perfused, no edema. NEUROLOGICAL: Cranial nerves II through XII grossly intact. Normal speech, gait not observed. PSYCH: Normal mood, normal affect. SKIN: Warm, dry, normal turgor, no rashes or lesions noted. LABS CBC WBC 6.2 K/mm3 (4.0-10.8) 09/20/17 Unknown RBC 3.63 M/mm3 (3.60-5.2) 09/20/17 Unknown Hgb 13.4 GM/dl (10.7-15.3) D 09/20/17 Unknown Hct 39.2 % (32.4-45.2) 09/20/17 Unknown MCV 108.1 fl (80-96) H 09/20/17 Unknown MCH 37.0 pg (25.7-33.7) H 09/20/17 Unknown MCHC 34.3 g/dl (32.0-36.0) 09/20/17 Unknown RDW 13.4 % (11.6-15.6) 09/20/17 Unknown Plt Count 218 K/MM3 (134-434) D 09/20/17 Unknown MPV 9.4 fl (7.5-11.1) 09/20/17 Unknown Neutrophils % 56.8 % (42.8-82.8) D 09/20/17 Unknown Neutrophils % (Manual) No Result Required. 09/17/17 Unknown Band Neutrophils % No Result Required. 09/17/17 Unknown Lymphocytes % 30.6 % (8-40) D 09/20/17 Unknown Lymphocytes % (Manual) 10.0 % (8-40) 09/17/17 07:30 Monocytes % 9.3 % (3.8-10.2) 09/20/17 Unknown Monocytes % (Manual) 6 % (3.8-10.2) 09/17/17 07:30 Eosinophils % 2.3 % (0-4.5) 09/20/17 Unknown Basophils % 1.0 % (0-2.0) D 09/20/17 Unknown Platelet Estimate Adequate 09/17/17 07:30 Platelet Comment No Result Required. 09/17/17 07:30 Poikilocytosis 1+ 09/16/17 03:30 Anisocytosis 2+ 09/16/17 03:30 Macrocytosis 2+ 09/16/17 03:30 CMP Sodium 141 mmol/L (136-145) 09/20/17 Unknown Potassium 4.5 mmol/L (3.5-5.1) D 09/20/17 Unknown Chloride 107 mmol/L (98-107) 09/20/17 Unknown Carbon Dioxide 27 mmol/L (21-32) D 09/20/17 Unknown Anion Gap 7 (8-16) L 09/20/17 Unknown BUN 9 mg/dL (7-18) D 09/20/17 Unknown Creatinine 0.8 mg/dL (0.55-1.02) 09/20/17 Unknown Creat Clearance w eGFR 59.51 (>60) 09/19/17 07:00 Random Glucose 99 mg/dL (74-106) D 09/20/17 Unknown Calcium 8.4 mg/dL (8.5-10.1) L 09/20/17 Unknown Phosphorus 2.3 mg/dL (2.5-4.9) L 09/20/17 Unknown Magnesium 2.1 mg/dL (1.8-2.4) 09/20/17 Unknown Total Bilirubin 0.9 mg/dl (0.2-1.0) D 09/19/17 07:00 AST 21 U/L (10-42) D 09/19/17 07:00 ALT 24 U/L (10-40) 09/19/17 07:00 Alkaline Phosphatase 60 U/L (32-92) D 09/19/17 07:00 Creatine Kinase 59 IU/L (26-192) 09/16/17 03:30 Troponin I < 0.03 ng/ml (0.03-0.50) L 09/16/17 03:30 Total Protein 5.7 g/dl (6.4-8.3) L 09/19/17 07:00 Albumin 2.9 g/dl (3.5-5.0) L 09/19/17 07:00 Lipase 76 U/L (73-393) 09/16/17 03:30 Microbiology 09/17/17 Unknown Blood - Peripheral Venous Blood Culture - Final NO GROWTH AFTER 5 DAYS INCUBATION 09/17/17 Unknown Blood - Peripheral Venous Blood Culture - Final NO GROWTH AFTER 5 DAYS INCUBATION 09/19/17 12:00 Drainage Gram Stain - Final 09/19/17 12:00 Drainage Body Fluid Culture - Final NO GROWTH OF AEROBIC ORGANISMS AFTER 48 HOURS INCUBATION 09/19/17 12:00 Drainage Anaerobic Culture - Final NO ANAEROBES WERE ISOLATED 09/17/17 18:00 Urine - Urine Clean Catch Urine Culture - Final Contaminated: Please Repeat IMAGING ct of abd/pelvis no acute diverticulitis with cholelithasis hida scan: findings compatible with acute cholecytitis. HOSPITAL COURSE: Patient was admitted from the emergency department for acute cholecytis and billary sepsis. Patient was treated with flagyl and zosyn, blood cultures was negative to date. Dr Santana was consulted, HIDA scan was completed which was compatible for acute cholecytitis. patient was referred to interventional radiology for percutanous cholecsytectomy tube, T-tube was placed on 09/19/17. leukocytos resolved and patient remained afebrile. Dr Nam, patient's private GI was consulted, EGD completed 09/16 was which was notable for gastritis. patient was placed on protonix and carafate. Patient does have a past medical history of hypertension, enalapril and vasotec was held due to labile blood pressure. Date of Admission:09/17/17 Date of Discharge: 09/20/17 Minutes to complete discharge: 45 Discharge Summary Reason For Visit: ABDOMINAL PAIN Current Active Problems Abdominal pain (Acute) Condition: Improved - Instructions Diet, Activity, Other Instructions: you were admitted to the hospital for acute cholecysitis and you were treated with IV antibiotics and a percutaneous drain of the gallbladder was placed during your admission. continue to empty the drainage bag daily continue antibiotic, augmentin twice a day for the next 7 days resume low cholesterol, low fat diet continue all medications as prescribed please follow up with your surgeon, Dr Baker within 2 weeks if any new or persistent symptoms develop please return to the emergency department Referrals: Fer Jeronimo MD [Primary Care Provider] - Cristian Baker MD [Staff Physician] - Disposition: VNS/HOME HEALTH CARE Problem List - Problems (1) Abdominal pain Code(s): R10.9 - UNSPECIFIED ABDOMINAL PAIN Qualifiers: Abdominal location: epigastric Qualified Code(s): R10.13 - Epigastric pain (2) Alcohol abuse, daily use Code(s): F10.10 - ALCOHOL ABUSE, UNCOMPLICATED (3) GERD (gastroesophageal reflux disease) Code(s): K21.9 - GASTRO-ESOPHAGEAL REFLUX DISEASE WITHOUT ESOPHAGITIS (4) HTN (hypertension) Code(s): I10 - ESSENTIAL (PRIMARY) HYPERTENSION This patient is new to me today: No Emergency Visit: Yes ED Registration Date: 09/17/17 Care time: The patient presented to the Emergency Department on the above date and was hospitalized for further evaluation of their emergent condition. Critical Care patient: No - Discharge Referral Referred to [facility] Yes Physician Referral: Fer Jeronimo MD (Int Med)
--- NOTE | 2017-09-20 13:25 | PN ---
Progress Note (short form) - Note Progress Note: surgery pt seen and examined. feels well. pain resolved. cholecystostomy tube with dark bile. abd- soft, nt Plan- agree with discharge. should follow up for interval cholecystectomy in 3 weeks [phone]
[2017-09-20 13:27] LABS: EOSINOPHIL 2.3 % (0-4.5); MCHC 34.3 g/dl (32.0-36.0); MEAN CELL VOLUME 108.1 fl (80-96); MEAN PLT VOLUME 9.4 fl (7.5-11.1); NEUTROPHILS 56.8 % (42.8-82.8); PLATELET COUNT 218 K/MM3 (134-434); RDW 13.4 % (11.6-15.6); WHITE BLOOD COUNT 6.2 K/mm3 (4.0-10.8)
[2017-09-20 13:48] LABS: ANION GAP 7 (8-16); CALCIUM 8.4 mg/dL (8.5-10.1); CO2 27 mmol/L (21-32); CREATININE 0.8 mg/dL (0.55-1.02); GLUCOSE,RANDOM 99 mg/dL (74-106); MAGNESIUM 2.1 mg/dL (1.8-2.4); PHOSPHOROUS 2.3 mg/dL (2.5-4.9)
== END 2017-09-20 15:00 | disposition home health service (06) | DRG 872 ==
LOC: FER 03:09 → FM/S 08:12 → OBSVTOIN 09-17 14:26
PROVIDERS: ADMIT Internal Medicine; ATTEND Nurse Practitioner Family
PROC: 0DD68ZX Extraction of Stomach, Via Natural or Artificial Opening Endoscopic, Diagnostic (ICD-10-PCS; 2017-09-16)
PROC: 0DD98ZX Extraction of Duodenum, Via Natural or Artificial Opening Endoscopic, Diagnostic (ICD-10-PCS; 2017-09-16 12:39)
PROC: 0F9430Z Drainage of Gallbladder with Drainage Device, Percutaneous Approach (ICD-10-PCS; principal; 2017-09-19)
DX: A41.9 Sepsis, unspecified organism (principal); K81.0 Acute cholecystitis; F10.10 Alcohol abuse, uncomplicated; K21.9 Gastro-esophageal reflux disease without esophagitis; I10 Essential (primary) hypertension; Z85.038 Personal history of other malignant neoplasm of large intestine; D72.828 Other elevated white blood cell count; K29.60 Other gastritis without bleeding; R10.13 Epigastric pain
CPT/HCPCS: 36415; 47490; 74177-TC; 76000-TC; 76098-TC; 76998-TC; 78226-TC; 80048; 80053; 81003; 81015; 82550; 83690; 83735; 84100; 84484; 85025; 85610; 87040; 87070; 87075; 87086; 87205; 87899; 88305-TC; 88342-TC; 93005; 99282-25; A4358; A9537; C1729; C1769; G0378; J1644

== ENCOUNTER 2017-10-19 08:44 | Observation (INO) | payer OTHER, MEDICARE ==
[2017-10-19 08:49] VITALS: TEMP 97.5; BMI 22.0
--- NOTE | 2017-10-19 09:10 | PDOC ---
History of Present Illness - General Chief Complaint: Pain Stated Complaint: ABD DISCOMFORT Time Seen by Provider: 10/19/17 08:58 History Source: Patient Exam Limitations: No Limitations - History of Present Illness Initial Comments: 10/19/17 09:13 Chief complaint: Abdominal pain Patient is an 87-year-old female, history of colon cancer, GERD, diverticulitis , cholelithiasis who was admitted into the hospital in September and had a percutaneous cystostomy tube placed and had been doing well, visiting nurse monitoring. Patient came to the ER today because she had pain last night which has gotten better this morning and it is very little bit. No fever no nausea or vomiting, no dysuria, normal bowel movement this morning. Patient appears well and patient is hungry. No fever GENERAL/CONSTITUTIONAL: No fever, weakness. dizziness HEAD, EYES, EARS, NOSE AND THROAT: No change in vision. No ear pain or discharge. No sore throat. CARDIOVASCULAR: No chest pain RESPIRATORY: No shortness of breath or cough GASTROINTESTINAL: +pain, no: nausea, vomiting, diarrhea or constipation GENITOURINARY: No dysuria MUSCULOSKELETAL: No neck or back pain SKIN: No rash NEUROLOGIC: No headache, vertigo, loss of consciousness, or loss of sensation. GENERAL: The patient is awake, alert, and fully oriented, in no acute distress. HEAD: Normal with no signs of trauma. EYES: Pupils equal, round and reactive to light, sclera anicteric, conjunctiva clear. ENT: pharynx: no erythema, no exudate, uvula midline NECK: supple CHEST: clear, nontender, rr ABD: soft, + bowel sounds,+ minimal tenderness at the area of the drain EXTREMITIES: Normal range of motion, no edema. NEUROLOGICAL: Normal speech, normal gait. SKIN: Warm, Dry Past History - Past Medical History Allergies/Adverse Reactions: Allergies Allergy/AdvReac Type Severity Reaction Status Date / Time No Known Drug Allergies Allergy Verified 10/19/17 08:49 Home Medications: Ambulatory Orders Pantoprazole Sodium [Protonix -] 40 mg PO DAILY #30 tablet.ec 09/20/17 Anemia: No Asthma: No Cancer: Yes (COLON 2006,HAD RESECTION AND CHEMO) Cardiac Disorders: No CVA: No COPD: No CHF: No Dementia: No Diabetes: No GI Disorders: Yes (GERD COLON CANCER) Disorders: No HTN: Yes Hypercholesterolemia: No Liver Disease: No Seizures: No Thyroid Disease: No Other medical history: GB DISEASE - Surgical History Abdominal Surgery: Yes (COLON RESECTION 2003) Appendectomy: Yes () Cardiac Surgery: No Cholecystectomy: No Lung Surgery: No Neurologic Surgery: No Orthopedic Surgery: No - Suicide/Smoking/Psychosocial Hx Smoking History: Never smoked Have you smoked in the past 12 months: No Hx Alcohol Use: No Drug/Substance Use Hx: No Substance Use Type: None Hx Substance Use Treatment: No *Physical Exam - Vital Signs Last Vital Signs Temp Pulse Resp BP Pulse Ox 97.5 F L 110 H 20 145/82 98 10/19/17 08:46 10/19/17 08:46 10/19/17 08:46 10/19/17 08:46 10/19/17 08:46 ED Treatment Course - LABORATORY CBC & Chemistry Diagram: 10/19/17 09:34 10/19/17 09:34 Medical Decision Making - Medical Decision Making 10/19/17 11:[address] Calderon who wants a CT, no contrast to see placement of tube , and we will discuss after that, aware of labs, repeat pulse rate is 89 10/19/17 13:06 CT findings discussed with Dr. Calderon, no indication for emergent IR intervention, patient can be seen Saturday or Saturday to see if tube can come out based on findings Will discuss rest of CT findings with surgeon 10/19/17 13:[address] Santana, reviewed CT findings, patient has no pain, benign abdominal exam. Reviewed labs and case. Patient can be discharged home for outpatient follow-up. 10/19/17 13:40 10/19/17 14:13 case with discussed throughout with Dr. Bae, aware of above, findings and plan *DC/Admit/Observation/Transfer Diagnosis at time of Disposition: Abdominal pain Qualifiers: Abdominal location: right upper quadrant Qualified Code(s): R10.11 - Right upper quadrant pain - Discharge Dispostion Disposition: HOME Condition at time of disposition: Stable Admit: No - Referrals - Patient Instructions - Post Discharge Activity
[2017-10-19 09:54] LABS: BASO % 1.3 % (0-2.0); EOS % 0.1 % (0-4.5); MCH 36.5 pg (25.7-33.7); MCHC 33.9 g/dl (32.0-36.0); MEAN CELL VOLUME 107.6 fl (80-96); MEAN PLT VOLUME 9.9 fl (7.5-11.1); NEUT % 68.4 % (42.8-82.8); PLATELET COUNT 150 K/MM3 (134-434); RDW 14.6 % (11.6-15.6); WHITE BLOOD COUNT 9.4 K/mm3 (4.0-10.0)
[2017-10-19 10:12] LABS: INR 1.08 (0.82-1.09); PROTHROMBIN TIME (PATIENT) 12.2 SEC (9.98-11.88)
[2017-10-19 10:14] LABS: ACTIVATED PTT 31.2 SECONDS (26.9-34.4)
[2017-10-19 10:17] LABS: ALBUMIN 3.6 g/dl (3.4-5.0); ANION GAP 9 (8-16); BILIRUBIN,TOTAL 1.7 mg/dL (0.2-1.0); CALCIUM 8.5 mg/dL (8.5-10.1); CO2 24 mmol/L (21-32); GLUCOSE,RANDOM 128 mg/dL (74-106); SGOT/AST 12 U/L (15-37); SGPT/ALT 14 U/L (12-78)
[2017-10-19 10:18] LABS: ALK PHOS 70 U/L (45-117)
[2017-10-19 13:34] LABS: URINE APPEARANCE CLOUDY; URINE BILIRUBIN NEGATIVE (NEGATIVE); URINE BLOOD NEGATIVE (NEGATIVE); URINE COLOR DKYELLOW; URINE GLUCOSE (UA) NEGATIVE (NEGATIVE); URINE KETONE TRACE (NEGATIVE); URINE LEUK ESTERASE TRACE (NEGATIVE); URINE NITRITE NEGATIVE (NEGATIVE); URINE PROTEIN NEGATIVE (NEGATIVE); URINE UROBILINOGEN NEGATIVE mg/dL (0.2-1.0)
[2017-10-19 13:49] LABS: URINE BACTERIA MANY /hpf (NONE SEEN); URINE MUCUS RARE; URINE RBC 3 /hpf (0-3); URINE WBC 5 /hpf (3-5)
[2017-10-19 14:01] VITALS: BP 130/70; PULSE 90
[2017-10-19 18:12] LABS: URINE LEUK ESTERASE Negative (NEGATIVE)
--- NOTE | 2017-10-21 19:05 | PDOC ---
*Physical Exam - Vital Signs Last Vital Signs Temp Pulse Resp BP Pulse Ox 97.5 F L 90 20 130/70 100 10/19/17 08:46 10/19/17 13:59 10/19/17 13:59 10/19/17 13:59 10/19/17 13:59 ED Treatment Course - LABORATORY CBC & Chemistry Diagram: 10/19/17 09:34 10/19/17 09:34 - ADDITIONAL ORDERS Additional order review: 10/19/17 09:34 RBC 3.50 L MCV 107.6 H MCHC 33.9 RDW 14.6 MPV 9.9 Neutrophils % 68.4 Lymphocytes % 17.2 D Monocytes % 13.0 H D Eosinophils % 0.1 Basophils % 1.3 *DC/Admit/Observation/Transfer Diagnosis at time of Disposition: Abdominal pain Qualifiers: Abdominal location: right upper quadrant Qualified Code(s): R10.11 - Right upper quadrant pain - Discharge Dispostion Disposition: HOME Condition at time of disposition: Stable - Referrals - Patient Instructions - Post Discharge Activity
== END 2017-10-19 14:10 | disposition home or self-care (01) ==
LOC: JER 08:44 → JERBED 11:47
PROVIDERS: ADMIT Internal Medicine; ATTEND Internal Medicine
DX: R10.11 Right upper quadrant pain (principal); I10 Essential (primary) hypertension; K21.9 Gastro-esophageal reflux disease without esophagitis; Z85.038 Personal history of other malignant neoplasm of large intestine; Z92.21 Personal history of antineoplastic chemotherapy; Z90.49 Acquired absence of other specified parts of digestive tract
CPT/HCPCS: 36415; 74176-TC; 80053; 81003; 81015; 83690; 85025; 85610; 85730; 87086; 87186; 99283-25; G0378

== ENCOUNTER 2021-03-04 17:23 | Emergency (ER) | payer OTHER, MEDICARE ==
[2021-03-04 17:36] VITALS: BP 148/89; PULSE 89; TEMP 97.8; BMI 22.8
[2021-03-04] MEDS ORDERED: ACETAMINOPHEN 325 MG TABLET (FP) PO ONE (17:39)
[2021-03-04] MEDS ORDERED: ACETAMINOPHEN 325 MG TABLET (FP) ONE (17:42)
== END 2021-03-04 19:10 | disposition home or self-care (01) ==
LOC: FER 17:23
DX: S09.90XA Unspecified injury of head, initial encounter (principal)
CPT/HCPCS: 70450-TC; 72125-TC; 99284-25

== ENCOUNTER 2021-10-16 10:12 | Day surgery (SDC) | payer OTHER, MEDICARE ==
[2021-10-13 09:19] VITALS: BMI 22.0
[2021-10-16] MEDS ORDERED: POVIDONE-IODINE 5% OPHTHALMIC PREP 30 ML SOLUTION ONE (10:29)
[2021-10-16] MEDS ORDERED: ACETYLCHOLINE 1:100 INTRA-OCUL 20 MG/2 ML KIT ONE (10:29)
[2021-10-16] MEDS ORDERED: BACITRACIN/POLYMYXIN OPH OINT 3.5 GM TUBE ONE (10:29)
[2021-10-16] MEDS ORDERED: BETAXOLOL HCL 0.25% OPHTHALMIC 10 ML DROPSBTL ONE (10:29)
[2021-10-16] MEDS ORDERED: TETRACAINE 0.5% OPHTH SOLN 2 ML BOTTLE ONE (10:29)
[2021-10-16] MEDS ORDERED: EPI-SHUGARCAINE (EPINEPHRINE 0.025% & LIDOCAINE-PF 0.75%) 4ML ONE (10:29)
[2021-10-16] MEDS ORDERED: NEO/POLYMYX B SULF/DEXAMETH OPHTHALMIC 5ML BOTTLE ONE (10:29)
[2021-10-16] MEDS ORDERED: TROPICAMIDE 1% OPHTH SOLN 15 ML BOTTLE ONE (11:07)
[2021-10-16] MEDS ORDERED: KETOROLAC TROMETHAMINE 0.5% EYE DROP 1 DROP DROPS ONE (11:07)
[2021-10-16] MEDS ORDERED: CYCLOPENTOLATE HCL 1% OPHTH SOLN 2 ML BOTTLE ONE (11:07)
[2021-10-16] MEDS ORDERED: PHENYLEPHRINE 2.5% OPHTH SOLN 15 ML BOTTLE ONE (11:07)
[2021-10-16] MEDS ORDERED: OFLOXACIN 0.3% OPHTHALMIC SOLUTION 5 ML BOTTLE ONE (11:07)
[2021-10-16] MEDS: KETOROLAC TROMETHAMINE 0.5% EYE DROP 1 DROP DROPS OS SCH ×3 (11:25→11:35)
[2021-10-16] MEDS: PHENYLEPHRINE 2.5% OPHTH SOLN 15 ML BOTTLE OS SCH ×3 (11:25→11:35)
[2021-10-16] MEDS: TROPICAMIDE 1% OPHTH SOLN 15 ML BOTTLE OS SCH ×3 (11:25→11:35)
[2021-10-16] MEDS: OFLOXACIN 0.3% OPHTHALMIC SOLUTION 5 ML BOTTLE OS SCH ×3 (11:25→11:35)
[2021-10-16] MEDS: CYCLOPENTOLATE HCL 1% OPHTH SOLN 2 ML BOTTLE OS SCH ×3 (11:25→11:35)
[2021-10-16] MEDS ORDERED: MIDAZOLAM HCL 2 MG/2 ML SINGLE DOSE VIAL ONE (12:40)
[2021-10-16] MEDS ORDERED: ACETAMINOPHEN 325 MG TABLET (FP) PO PRN (13:07)
[2021-10-16 13:15] VITALS: PULSE 79; TEMP 97.8
[2021-10-16 13:50] VITALS: BP 115/74
== END 2021-10-16 13:50 | disposition home or self-care (01) ==
LOC: FASU 10:12
PROVIDERS: ATTEND Ophthalmology
PROC: 08RK3JZ Replacement of Left Lens with Synthetic Substitute, Percutaneous Approach (ICD-10-PCS; principal; 2021-10-16 12:44)
DX: H25.12 Age-related nuclear cataract, left eye (principal)

== ENCOUNTER 2021-11-13 10:26 | Day surgery (SDC) | payer OTHER, MEDICARE ==
[2021-11-13] MEDS ORDERED: TROPICAMIDE 1% OPHTH SOLN 15 ML BOTTLE ONE (10:38)
[2021-11-13] MEDS ORDERED: CYCLOPENTOLATE HCL 1% OPHTH SOLN 2 ML BOTTLE ONE (10:38)
[2021-11-13] MEDS ORDERED: OFLOXACIN 0.3% OPHTHALMIC SOLUTION 5 ML BOTTLE ONE (10:38)
[2021-11-13] MEDS ORDERED: KETOROLAC TROMETHAMINE 0.5% EYE DROP 1 DROP DROPS ONE (10:39)
[2021-11-13] MEDS ORDERED: PHENYLEPHRINE 2.5% OPHTH SOLN 15 ML BOTTLE ONE (10:39)
[2021-11-13] MEDS: CYCLOPENTOLATE HCL 1% OPHTH SOLN 2 ML BOTTLE OD SCH ×3 (10:55→11:05)
[2021-11-13] MEDS: TROPICAMIDE 1% OPHTH SOLN 15 ML BOTTLE OD SCH ×3 (10:55→11:05)
[2021-11-13] MEDS: PHENYLEPHRINE 2.5% OPHTH SOLN 15 ML BOTTLE OD SCH ×3 (10:55→11:05)
[2021-11-13] MEDS: KETOROLAC TROMETHAMINE 0.5% EYE DROP 1 DROP DROPS OD SCH ×3 (10:55→11:05)
[2021-11-13] MEDS: OFLOXACIN 0.3% OPHTHALMIC SOLUTION 5 ML BOTTLE OD SCH ×3 (10:55→11:05)
[2021-11-13 11:01] VITALS: BMI 22.8
[2021-11-13] MEDS ORDERED: MIDAZOLAM HCL 2 MG/2 ML SINGLE DOSE VIAL ONE ×2 (11:54→12:15)
[2021-11-13] MEDS ORDERED: NEO/POLYMYX B SULF/DEXAMETH OPHTHALMIC 5ML BOTTLE ONE (11:58)
[2021-11-13] MEDS ORDERED: POVIDONE-IODINE 5% OPHTHALMIC PREP 30 ML SOLUTION ONE (11:58)
[2021-11-13] MEDS ORDERED: BACITRACIN/POLYMYXIN OPH OINT 3.5 GM TUBE ONE (11:58)
[2021-11-13] MEDS ORDERED: BETAXOLOL HCL 0.25% OPHTHALMIC 10 ML DROPSBTL ONE (11:58)
[2021-11-13] MEDS ORDERED: EPINEPHrine/PF 1 MG/1 ML (1:1,000) AMPULE ONE (11:58)
[2021-11-13] MEDS ORDERED: TETRACAINE 0.5% OPHTH SOLN 2 ML BOTTLE ONE (11:58)
[2021-11-13] MEDS ORDERED: ACETYLCHOLINE 1:100 INTRA-OCUL 20 MG/2 ML KIT ONE (11:58)
[2021-11-13] MEDS ORDERED: BSS (NA/CA/MG/K) BALANCED SALT SOLUTION OPHTH SOLN 15 ML BOTTLE ONE (12:12)
[2021-11-13] MEDS ORDERED: ACETAMINOPHEN 325 MG TABLET (FP) PO PRN (12:41)
[2021-11-13] MEDS ORDERED: ACETAMINOPHEN 325 MG TABLET (FP) ONE (13:00)
[2021-11-13 13:03] VITALS: BP 131/74; PULSE 80; TEMP 97.8
== END 2021-11-13 13:30 | disposition home or self-care (01) ==
LOC: FASU 10:26
PROVIDERS: ATTEND Ophthalmology
PROC: 08RJ3JZ Replacement of Right Lens with Synthetic Substitute, Percutaneous Approach (ICD-10-PCS; principal; 2021-11-13 12:20)
DX: H25.11 Age-related nuclear cataract, right eye (principal)

== ENCOUNTER 2022-02-09 21:07 | Emergency (ER) | payer OTHER, MEDICARE ==
[2022-02-09 21:53] VITALS: BP 141/73; PULSE 99; TEMP 98.4; BMI 22.8
[2022-02-09 21:54] LABS: ALBUMIN 4.1 g/dl (3.4-5.0); BILIRUBIN,TOTAL 1.3 mg/dl (0.2-1); CALCIUM 8.9 mg/dl (8.5-10); CREATININE 1.6 mg/dl (0.55-1.3); TOT PROT 6.6 g/dl (6.4-8.2)
[2022-02-09] MEDS ORDERED: ONDANSETRON 4 MG/2 ML VIAL IVPUSH ONE (22:20)
[2022-02-09] MEDS ORDERED: ONDANSETRON 4 MG/2 ML VIAL ONE (22:22)
[2022-02-09] MEDS ORDERED: CIPROFLOXACIN 500 MG TABLET (RESTRICTED TO ID) PO ONE (22:25)
[2022-02-09] MEDS ORDERED: metroNIDAZOLE 500 MG TABLET PO ONE (22:26)
[2022-02-09] MEDS ORDERED: metroNIDAZOLE 250 MG TABLET ONE (22:27)
[2022-02-09] MEDS ORDERED: CIPROFLOXACIN 250 MG TABLET (RESTRICTED TO ID) PO ONE (22:28)
[2022-02-09 22:57] LABS: EPITHELIAL CELLS FEW /hpf
[2022-02-09 22:58] LABS: BASO % 0.8 % (0-2.0); EOS % 0.3 % (0-4.5); HEMOGLOBIN 13.7 GM/dL (10.7-15.3); LYMPH % 30.4 % (8-40); MCH 38.6 pg (25.7-33.7); MCHC 35.1 g/dl (32.0-36.0); MEAN CELL VOLUME 109.9 fl (80-96); MEAN PLT VOLUME 10.3 fl (7.5-11.1); MONO % 12.2 % (3.8-10.2); NEUT % 56.3 % (42.8-82.8); PLATELET COUNT 135 10^3/uL (134-434); RBC 3.54 M/mm3 (3.60-5.2); RDW 14.4 % (11.6-15.6); WHITE BLOOD COUNT 7.5 K/mm3 (4.0-10.0)
[2022-02-09 23:30] LABS: ANISOCYTOSIS 2+; MACROCYTOSIS 2+
== END 2022-02-09 22:34 | disposition home or self-care (01) ==
LOC: FER 21:07
PROC: 3E033GC Introduction of Other Therapeutic Substance into Peripheral Vein, Percutaneous Approach (ICD-10-PCS; principal; 2022-02-09)
DX: R10.32 Left lower quadrant pain (principal)
CPT/HCPCS: 36415; 80053; 81003; 81015; 85025; 99284-25